=== PATIENT | female | born 1945 | race Caucasian/White ===

== ENCOUNTER 2017-07-21 08:45 | Inpatient (IN) | payer OTHER ==
[~2017-07-21] VITALS: Ht 157.5 cm; Wt 154.7 kg
[~2017-07-21 08:45] MED LIST: ADULT LOW DOSE81 MG PO; ALEVE220 MG PO; ASPIRIN81 M2 PO; AUGMENTIN 875875 M1 PO; COUMADIN 5 MG TA5 M1 PO; FLEX A MIN; FLEXI JOINT TA1 EAC1 PO; LASIX 40 MG TAB40 M2 PO; MUCINEX TA600 MG/TA2 PO; OXYGEN MISCELL; TESSALON PERLE100 MG PO; VENTOLIN HFA 1818 GM INH
[2017-07-21 08:48] VITALS: BP 166/61
[2017-07-21] MEDS ORDERED: MOVE FREE JOIN1 EACH PO (08:53)
[2017-07-21 09:52] LABS: HEMATOCRIT 43.8 % (37.0-47.0); MCH 28.8 pg (26.0-34.0); MPV 7.6 fl. (7.2-11.1); NUCLEATED RBCS 0 /100WBC; PLATELET COUNT* 315 thou/uL (150-400); RBC 4.87 mil/uL (4.20-5.00); RDW-CV 15.9 % (10.5-14.5); WBC 10.8 thou/uL (4.0-11.0)
[2017-07-21 09:59] LABS: CALCIUM 8.9 mg/dL (8.5-10.1); POTASSIUM 4.1 mmol/L (3.5-5.1)
[2017-07-21 10:10] LABS: TOTAL BILIRUBIN 0.7 mg/dL (<0.1-1.0); TOTAL PROTEIN 8.4 g/dL (6.4-8.2)
[2017-07-21] MEDS ORDERED: KEFLEX250 MG PO (10:14)
[2017-07-21 10:18] LABS: ABSOLUTE LYMPHOCYTES 0.3 thou/uL (0.8-5.3); ABSOLUTE MONOCYTES 0.5 thou/uL (0.0-1.2); ABSOLUTE NEUTROPHILS 9.9 thou/uL (1.6-8.1)
[2017-07-21 10:19] LABS: ANISOCYTOSIS 1+; PLATELET ESTIMATE ADEQUATE; POIKILOCYTOSIS 1+
[2017-07-21] MEDS ORDERED: PROAIR HFA8.5 GM INH (10:23)
[2017-07-21 10:56] VITALS: BP 147/69
--- NOTE | 2017-07-21 11:30 | NUR ---
ATTEMPTED TO HELP PT UP TP THE BATHROOM. PT REQUIRED MAX ASSIST TO GET TO THE SIDE OF THE BED. THIS NURSE VERY UNCOMFORTABLE WITH ATTEMPTING TO GET THE PT UP SHE REQUIRED SO MUCH ASSISTANCE TO SIT UP. DR BROWN IS NOW GOING TO ADMIT THE PT SHE IS WEAK AND NOT SAFE TO GO HOME. AFTER SEVERAL ATTEMPTED TO HELP PT TO GET BACK IN BED WITH NO COOPERATION FOR PT. MULTIPLE STAFF IN ROOM AND HELPED THE PT BACK TO BED. PT NOW IN BED WITH SIDE RAIL UP. AND ON THE MONITOR.
[2017-07-21 13:31] VITALS: BP 140/66
[2017-07-21 13:34] LABS: INR 2.4; PROTIME 23.4 Seconds (9.20-11.50)
[2017-07-21 13:37] LABS: INFLUENZA A ANTIGEN None Detected (None Detect); INFLUENZA B ANTIGEN None Detected (None Detect)
[2017-07-21 14:30] VITALS: BP 149/60
--- NOTE | 2017-07-21 14:47 | EKG ---
[place] [address] ELECTROCARDIOGRAM REPORT Name: CHIKI TREVINO I Room: [address] IN [facility].#: [id number] Admission: 07/21/17 Attend Phys: Dago Jensen MD Discharge: Date of : 41 Report #: [id number] THIS REPORT FOR: //name// [facility] ED Test Date: 2017-07-21 Test Time: 09:18:19 Pat Name: CHIKI TREVINO Department: Room: [facility] Gender: F Dice Manager: Evelin DUGGAN : 1945 Requested By: Juan Kaur Order Number: [id number] MD: Celio Duran Measurements Intervals [place] Rate: 95 P: DE: QRS: 42 QRSD: 93 T: 68 QT: 331 QTc: 416 Interpretive Statements Sinus rhythm Low voltage, precordial leads Probable anteroseptal infarct, old Compared to ECG 09/19/2012 13:10:07 Low QRS voltage now present Sinus rhythm no longer present Left-axis deviation no longer present Myocardial infarct finding still present Electronically Signed On 07-21-2017 14:46:49 FOOD SAFETY SPECIALIST by Celio Duran [email or web address] <ELECTRONICALLY SIGNED> By: Celio Duran MD, FACC 07/21/17 1446 7 7 Celio Duran MD, FACC /EPI
[2017-07-21 15:15] VITALS: BP 149/60
--- NOTE | 2017-07-21 16:15 | NUR ---
RECEIVED PT FROM Robert AT 1425. PT IN BED, BED IN LOW AND LOCKED POSITION, FALL PRECAUTIONS IN PLACE FOR HIGH FALL RISK STATUS. CALL BUTTON AND PERSONAL ITEMS IN PT REACH. PT A&O X2, FORGETFUL/CONFUSED. LOW GRADE TEMP ORALLY/99.9, PT IN 2L O2 NC/96%. B/P, HR WNL, RESPIRATIONS 21, LOOSE PRODUCTIVE COUGH. PERRLA. MULTIPLE SKIN ISSUES WITH REDNESS UNDER SKIN FOLDS, BILATERAL LE CELLULITIS, WEEPING, GENERALIZED EDEMA, LUNGS COARSE TO DIMINISHED. ABD SOFT TO PALPATION, MORBIDLY OBESE, PAIN EXPRESSED ON ANY KIND OF TOUCH ON PATIENT. PT HIGH NEED, ANXIOUS PATIENT AT THIS TIME. INCONTINENT OF BLADDER, ESPINOZA TO BE STARTED PER MD ORDERS. PICC LINE PRESENTLY BEING STARTED BY INFUSION NURSE ASH AFTER LOSS OF POOR PERIPHERAL IV ACCESS. FLU A AND B WERE NOT DECTECTED VIA SWAB/LAB. UA NEEDED TO BE OBTAINED AFTER PICC LINE PROCEDURE. PT LIVES IN HOME WITH LONG TIME FRIEND, PT USES LIFT WHEELCHAIR, GRAB BARS, COMMODE LIFT, SHOWER AIDS, PT DOES NOT WALK IN HOME BUT IS KNOWN TO TRANSFER BETWEEN W/C AND [facility]/BED. WILL CONTINUE TO MONITOR PT PROGRESS AND STATUS. ADMISSION COMPLETED.
--- NOTE | 2017-07-21 16:47 | 2DMMODE ---
[place] [address] 2 D/M-MODE ECHOCARDIOGRAM Name: CHIKI TREVINO I Room: [address] IN [facility]#: [id number] Admission: 07/21/17 Attend Phys: Dago Jensen, Discharge: Date of : 41 Date of Service: 07/21/17 1647 Report #: [id number] THIS REPORT FOR: //name// APPROVED REPORT Study performed: 07/21/2017 15:27:50 EXAM: Comprehensive 2D, Doppler, and color-flow Echocardiogram Patient Location: In-Patient Room #: [facility] Status: routine BSA: 2.40 HR: 100 bpm BP: 140/60 mmHg Rhythm: NSR Other Information Study Quality: Good Indications Congestive Heart Failure 2D Dimensions LVEF(%): 69.79 (>50%) IVSd: 10.37 (7-11mm) LVOT Diam: 18.93 (18-24mm) LVDd: 42.37 mm PWd: 11.44 (7-11mm) Ascending Ao: 29.80 (22-36mm) LVDs: 25.84 (25-40mm) Aortic Root: 30.67 mm Collazo's LVEF: 69.79 % Volumes Left Atrial Volume (Systole) LA ESV Index: 17.10 mL/m2 Aortic Valve AoV Peak Artemio.: 2.11 m/s AO Peak Gr.: 17.88 mmHg LVOT Max P.13 mmHg AO Mean Gr.: 10.11 mmHg LVOT Mean P.87 mmHg LVOT Max V: 1.59 m/s AO V2 VTI: 30.40 cm LVOT Mean V: 1.00 m/s YULIYA (VTI): 1.86 cm2 LVOT V1 VTI: 20.06 cm Mitral Valve E/A Ratio: 0.82 [place] [address] 2 D/M-MODE ECHOCARDIOGRAM Name: CHIKI TREVINO I Room: [address] IN [facility]#: [id number] Admission: 07/21/17 Attend Phys: Dago Jensen, Discharge: Date of : 41 Date of Service: 07/21/17 1647 Report #: [id number] MV Decel. Time: 238.27 ms MV E Max Artemio.: 0.96 m/s MV PHT: 69.10 ms MVA (PHT): 3.18 cm2 Pulmonary Valve PV Peak Artemio.: 1.20 m/s PV Peak Gr.: 5.74 mmHg Left Ventricle The left ventricle is normal size. There is normal LV segmental wall motion. There is normal left ventricular wall thickness. Left ventricular systolic function is normal. LVEF is 65-70%. Grade I - abnormal relaxation pattern. Right Ventricle The right ventricle is normal size. The right ventricular systolic function is normal. Atria The left atrium size is normal. The right atrium size is normal. Aortic Valve The aortic valve is normal in structure. No aortic regurgitation is present. There is no aortic valvular stenosis. Mitral Valve The mitral valve is normal in structure. There is no mitral valve regurgitation noted. No evidence of mitral valve stenosis. Tricuspid Valve The tricuspid valve is normal in structure. Unable to assess PA pressure. Trace tricuspid regurgitation. Pulmonic Valve The pulmonary valve is normal in structure. There is no pulmonic valvular regurgitation. Great Vessels The aortic root is normal in size. IVC is normal in size and collapses with >50% inspiration Pericardium Trace pericardial effusion. <Conclusion> [place] [address] 2 D/M-MODE ECHOCARDIOGRAM Name: CAMILLELADONNA ANNHARDEEP Winkler Room: [address] IN [facility]#: [id number] Admission: 07/21/17 Attend Phys: Dago Jensen, Discharge: Date of : 41 Date of Service: 07/21/17 1647 Report #: [id number] The left ventricle is normal size. There is normal left ventricular wall thickness. Left ventricular systolic function is normal. LVEF is 65-70%. Grade I - abnormal relaxation pattern. <ELECTRONICALLY SIGNED> By: Celio Duran MD, FACC 07/21/171646 46 46 Celio Duran MD, FACC /INF
--- NOTE | 2017-07-21 16:48 | NUR ---
NOTIFIED TO PLACE A PICC FOR A PATIENT NEEDING ADDITIONAL ACCESS. ORDER AND CONSENT NOTED. THE PROCEDURE WELL BENIFITS AND RISK FOR DVT AND INFECTION DISCUSSED AND SHE VERBALIZED UNDERSTANDING. THE RUE BASILIC WAS WIDLEY PATENT. A #4F DOUBLE LUMEN POWER PICC WAS PLACED AFTER A BEDSIDE TIMEOUT WAS COMPLETE. PICC TRIMMED TO 45CM AND ADVANCED WITHOUT DIFFICULTY. LINE CONFIRMED WITH 3CG AT 0CM EXTERNAL. LINE SECURED AND RELEASED FOR USE
--- NOTE | 2017-07-21 22:19 | NUR ---
ESPINOZA CATHETER INITIATED AND PATENT. PT OUTPUT 1000 ML IMMEDIATELY AFTER INSERTING ESPINOZA CATH. WATERY LOOSE STOOL X3 SINCE ADMIT, STOOL SAMPLE TAKEN TO LAB FOR PROCESSING. MULTIPLE PICTURES TAKEN R/T CELLULITIS, REDNESS IN SKIN FOLDS, BUTTOCK STILL NEEDS PHOTO FOR PURPLE COLOR AND BLEEDING CRACK INSIDE BUTTOCK SEAM. PT AGREED TO FECAL TUBE IF NEEDED SINCE SHE IS A HARD AND PAINFUL SANTIAGO. REQUIRES TURNS Q2 OR MORE OFTEN. PAIN AT TOUCH GENERALIZED ANYWHERE.
[2017-07-22 00:51] VITALS: BP 129/58
[2017-07-22 01:28] LABS: URINE BILIRUBIN NEGATIVE (Negative); URINE BLOOD 2+ (Negative); URINE CLARITY CLEAR; URINE COLOR YELLOW; URINE GLUCOSE-RANDOM NEGATIVE (Negative); URINE KETONES NEGATIVE (Negative); URINE LEUKOCYTES-REFLEX NEGATIVE (Negative); URINE NITRITE-REFLEX NEGATIVE (Negative); URINE PROTEIN NEGATIVE (Negative); URINE SPECIFIC GRAVITY 1.025 (1.005-1.030); URINE UROBILINOGEN 0.2 E.U./dl (0.2-1.0)
[2017-07-22 02:31] LABS: CASTS None Seen /LPF (None Seen); MUCUS 0-3 Light strn/LPF (None Seen); SQUAMOUS 0-3 Few /LPF (0-3)
[2017-07-22 02:32] LABS: BACTERIA-REFLEX 1-9 Few /HPF (None Seen); CRYSTALS None Seen /LPF (None Seen); URINE RBC 3-10 Few /HPF (0-2); URINE WBC-REFLEX 0-5 Rare /HPF (0-5)
--- NOTE | 2017-07-22 03:47 | NUR ---
ASSUMED CARE @ 1959-07/21-MON.AWAKE IN BED W/ HOB UP 45 DEGREES.02 CONTINOUS @ 2L/NC.LADY FRIEND RUBA STAYING ALL NIGHT.ESPINOZA CATHETER INSERTED BY DAY RN. CELLULITIS LEGS-W/ BLISTERS & WEEPING.REFUSED TO TURN DURING NIGHT.PREFERS TO STAY ON HER BACK.URINE FOR UA/CS SENT TO LAB @ -SAT.TWO PORTS PICC LINE HAS GOOD BLOOD RETURN & FLUSHES EASILY.ON HOURLY ROUNDS.GAME DESIGNER DOING ODD HOUR ROUNDS.
[2017-07-22 05:54] LABS: ABSOLUTE LYMPHOCYTES 0.5 thou/uL (0.8-5.3); ABSOLUTE MONOCYTES 0.1 thou/uL (0.0-1.2); ABSOLUTE NEUTROPHILS 7.9 thou/uL (1.6-8.1); BASOPHILS 0.4 %; HEMATOCRIT 37.7 % (37.0-47.0); HEMOGLOBIN 12.3 gm/dL (12.0-15.0); LYMPHOCYTES 5.6 %; MCH 28.8 pg (26.0-34.0); MCHC 32.7 g/dL (28.0-37.0); MCV 88.3 fL (80.0-100.0); MONOCYTES 0.7 %; MPV 7.8 fl. (7.2-11.1); NUCLEATED RBCS 0 /100WBC; PLATELET COUNT* 275 thou/uL (150-400); POLYS 93.3 %; RBC 4.27 mil/uL (4.20-5.00); RDW-CV 15.5 % (10.5-14.5); WBC 8.5 thou/uL (4.0-11.0)
[2017-07-22 06:08] LABS: CALCIUM 8.3 mg/dL (8.5-10.1); CREATININE 0.9 mg/dL (0.6-1.3); MAGNESIUM 1.7 mg/dL (1.8-2.4); POTASSIUM 3.6 mmol/L (3.5-5.1)
[2017-07-22 06:13] LABS: INR 2.9; PROTIME 28.1 Seconds (9.20-11.50)
--- NOTE | 2017-07-22 07:38 | NUR ---
SLEEPING SINCE 2299.REFUSED HS SNACK.TEMP @ 1715-74.4 ORAL.TEMP RE-CHECKED @ 0410-70.3 ORAL.NO MORE STOOLS AFTER 1999.REFUSED FECAL TUBE.ESPINOZA CATHETER PATENT.
[2017-07-22 08:15] VITALS: BP 128/62
[2017-07-22 16:00] VITALS: BP 112/58
--- NOTE | 2017-07-22 17:58 | NUR ---
PATIENT HAS BEEN ALERT AND ORIENTED TODAY. REFUSING TO BE TURNED AT TIMES AND TO HAVE FEET ELEVATED. LOWER EXTREMITIES ARE VERY SWOLLEN, PATIENT IS GETTING IV LASIX, ESPINOZA IS IN PLACE AND DRAINING WELL. NO COMPLAINTS OF PAIN TODAY. PATIENT HAS BEEN COUGHING, NON PRODUCTIVE COUGH WITH FAIR EFFORT. FRIEND HAS BEEN AT BEDSIDE MOST OF THE DAY. VITAL SIGNS HAVE BEEN STABLE ON 2 LITERS OF OXYGEN THROUGH NASAL CANNULA. WILL CONTINUE TO MONITOR.
[2017-07-22 20:15] VITALS: BP 127/63
[2017-07-22 23:10] VITALS: BP 116/53
[2017-07-23 04:11] VITALS: BP 123/51
--- NOTE | 2017-07-23 05:29 | NUR ---
PT SLEPT ON AND OFF THROUGH NIGHT. ASSESSMENT DOCUMENTED. MEDS GIVEN PER E-MAR. PT REPORTED NO PAIN OR NAUSEA. PICC PATENT. ESPINOZA IN PLACE AND DRAINING DEPENDANTLY. URINE STARTED TO TURN PINK THIS AM. WILL CONTINUE TO MONITOR.
[2017-07-23 05:36] LABS: ABSOLUTE LYMPHOCYTES 0.6 thou/uL (0.8-5.3); ABSOLUTE MONOCYTES 0.5 thou/uL (0.0-1.2); ABSOLUTE NEUTROPHILS 12.1 thou/uL (1.6-8.1); BASOPHILS 0.2 %; HEMATOCRIT 37.1 % (37.0-47.0); LYMPHOCYTES 4.2 %; MCH 28.6 pg (26.0-34.0); MCHC 32.4 g/dL (28.0-37.0); MCV 88.3 fL (80.0-100.0); MONOCYTES 3.6 %; MPV 8.5 fl. (7.2-11.1); NUCLEATED RBCS 0 /100WBC; PLATELET COUNT* 281 thou/uL (150-400); RDW-CV 15.8 % (10.5-14.5); WBC 13.2 thou/uL (4.0-11.0)
[2017-07-23 05:54] LABS: INR 4.4
[2017-07-23 06:03] LABS: ALBUMIN 2.4 g/dL (3.4-5.0); CALCIUM 8.3 mg/dL (8.5-10.1); POTASSIUM 3.1 mmol/L (3.5-5.1); TOTAL BILIRUBIN 0.2 mg/dL (<0.1-1.0)
[2017-07-23 08:00] VITALS: BP 146/63
[2017-07-23 14:18] VITALS: BP 146/63
[2017-07-23 16:28] VITALS: BP 130/61
--- NOTE | 2017-07-23 17:56 | NUR ---
ASSUMED CARE OF PT THIS AM ASSESSED AND DOCUMENTED. PT IS A&O WITH NO C/O PAIN. VSS WNL. PT HAS BEEN AFEBRILE. SHE REMAINS ON ISOLATION DROPLET FOR TESTS PENDING. PT ESPINOZA WAS BLOOD TINGED BEGINNING OF SHIFT. THIS AFTERNOON URINE HAS BEEN CLEAR YELLOW. PT HAS AUDIBLE WHEEZING WITH COARSE LUNGS .PT IS A FALL RISK AND CONT ON FALL PROTOCOL PER FACILITY. PT HAS A PATENT DOUBLE LUMEN PICK IN HER UR ARM. BLLE ARE EDEMATOUS WITH WEEPING AND BLISTERS. HAVE CONT TO ELEVATE LEGS AND HEELS. PT HAS BEEN Q2 HR TURN AND REPOSITIONED. PT HAS HAD NO S OR SX OF ADVERSE REACTION TO ABT'S. EDUCATION HAS BEEN GIVEN ON DEMAND. HOURLY ROUNDING COMPLETE. CALL LIGHT IN REACH. SENT DR LYON YOU CALL FOR K+ ORDER.
[2017-07-23 20:30] VITALS: BP 131/88
[2017-07-24 06:25] LABS: ABSOLUTE LYMPHOCYTES 1.4 thou/uL (0.8-5.3); ABSOLUTE MONOCYTES 1.1 thou/uL (0.0-1.2); ABSOLUTE NEUTROPHILS 9.6 thou/uL (1.6-8.1); BASOPHILS 0.2 %; HEMATOCRIT 38.6 % (37.0-47.0); HEMOGLOBIN 12.7 gm/dL (12.0-15.0); LYMPHOCYTES 11.8 %; MCH 28.4 pg (26.0-34.0); MCHC 32.9 g/dL (28.0-37.0); MCV 86.3 fL (80.0-100.0); MPV 7.7 fl. (7.2-11.1); NUCLEATED RBCS 0 /100WBC; PLATELET COUNT* 288 thou/uL (150-400); RBC 4.47 mil/uL (4.20-5.00); RDW-CV 15.6 % (10.5-14.5); WBC 12.1 thou/uL (4.0-11.0)
[2017-07-24 06:35] LABS: PROTIME 57.4 Seconds (9.20-11.50)
[2017-07-24 06:39] LABS: INR 6.1
[2017-07-24 06:41] LABS: ALBUMIN 2.5 g/dL (3.4-5.0); CALCIUM 8.4 mg/dL (8.5-10.1); POTASSIUM 3.4 mmol/L (3.5-5.1); TOTAL BILIRUBIN 0.3 mg/dL (<0.1-1.0); TOTAL PROTEIN 7.1 g/dL (6.4-8.2)
[2017-07-24 06:43] LABS: PREALBUMIN 22.3 mg/dL (18.0-35.7)
--- NOTE | 2017-07-24 06:52 | NUR ---
PT SLEPT ON AND OFF THORUGH NIGHT. ASSESSMENT DOCUMENTED. MEDS GIVEN PER E-MAR. PT REPORTED NO PAIN OR NAUSEA. PICC PATENT. POTASSIUM REPLACED PER PROTOCOL. ESPINOZA DRAINING DEPENDENTLY. PT REFUSED SOME TURNS THIS SHIFT. NO CONCERNS AT THIS TIME, WILL CONTINUE TO MONITOR.
[2017-07-24 08:30] VITALS: BP 139/53
[2017-07-24 11:33] LABS: INR 5.7
--- NOTE | 2017-07-24 12:52 | NUR ---
Nutrition: Consult received for "morbid obesity." Wt: 341#. Last admit, pt weighed 317#. She has chronic edema. Admitted pneumonitis, wheezing, bronchitis. CHO controlled 1000 kcal diet. BG WNL, alb 2.5, prealb 22.3, K+ 3.4 and being replaced. Pt eating 100% of meals. No nutrition intervention needed at this time. Goal: continue w low kcal diet, good BG control, wt loss over time. Mild risk.
[2017-07-24 16:00] VITALS: BP 132/56
--- NOTE | 2017-07-24 16:09 | NUR ---
SW met with pt to complete initial assessment, introduce self, and SW role. Pt was out of the room at the moment and pt friend/caregiver, Hailee provided info that pt/pt friend anticipate pt being able to dc home with friend but that they would see how the pt is feeling and functioning as well. Pt has history of oxygen with [facility] and hx of HH with [facility]. SW to continue to follow to assist with safe dc planning.
--- NOTE | 2017-07-24 16:50 | NUR ---
I have reviewed the documentation by zayra Mancuso from 07/24/17 to 07/24/17 and I concur with it. JD BERNAL
--- NOTE | 2017-07-24 17:43 | NUR ---
PATIENT HAS BEEN ALERT AND ORIENTED TODAY, FAMILY AT BEDSIDE TODAY. NO COMPLAINTS OF ANY KIND TODAY. VITAL SIGNS STABLE ON 2 LITERS OF OXYGEN THROUGH NASAL CANNULA. PATIENT HAS ESPINOZA IN PLACE. CALL LIGHT IS IN REACH, FAMILY AT BEDSIDE WILL CONTINUE TO MONITOR.
[2017-07-24 21:00] VITALS: BP 135/73
[2017-07-25 04:25] LABS: CALCIUM 8.6 mg/dL (8.5-10.1); CREATININE 0.8 mg/dL (0.6-1.3); POTASSIUM 3.7 mmol/L (3.5-5.1)
[2017-07-25 05:04] LABS: HEMATOCRIT 36.6 % (37.0-47.0); HEMOGLOBIN 12.2 gm/dL (12.0-15.0); MCH 28.4 pg (26.0-34.0); MCHC 33.3 g/dL (28.0-37.0); MCV 85.2 fL (80.0-100.0); MPV 7.7 fl. (7.2-11.1); RBC 4.29 mil/uL (4.20-5.00); RDW-CV 15.6 % (10.5-14.5); WBC 6.9 thou/uL (4.0-11.0)
[2017-07-25 05:44] LABS: INR 3.2
[2017-07-25 09:00] VITALS: BP 142/60
--- NOTE | 2017-07-25 09:10 | NUR ---
PT SLEPT ON AND OFF THIS SHIFT. ASSESSMENT DOCUMENTED. MEDS GIVEN PER E-AUG. PT REPORTED NO PAIN. PICC PATENT. PT REFUSED REPOSITIONS ALL NIGHT. NO CONCERNS AT THIS TIME, WILL CONTINUE TO MONITOR.
[2017-07-25 14:50] VITALS: BP 144/72
[2017-07-26 00:24] VITALS: BP 130/64
[2017-07-26 02:07] LABS: ADENOVIRUS Negative (Negative); INFLUENZA A Negative (Negative); INFLUENZA B Negative (Negative); METAPNEUMOVIRUS Negative (Negative); PARAINFLUENZA 1 Negative (Negative); PARAINFLUENZA 2 Negative (Negative); PARAINFLUENZA 3 Negative (Negative); RHINOVIRUS Negative (Negative); RSV A Negative (Negative); RSV B Positive (Negative)
[2017-07-26 06:33] LABS: PROTIME 16.1 Seconds (9.20-11.50)
[2017-07-26 06:36] LABS: INR 1.7
--- NOTE | 2017-07-26 06:59 | NUR ---
PATIENT SLEPT PART OF THE NIGHT. PATIENT REMAINS ON OXYGEN AT 2L PER NASAL CANNULA. ESPINOZA REMAINS TO DEPENDENT DRAIN BUT PATIENT IS HAVING BLOODY DISCHARGE. PATIENT REMAINS ON DROPLET PRECAUTIONS. WILL CONTINUE TO MONITOR.
[2017-07-26 08:00] VITALS: BP 121/58
--- NOTE | 2017-07-26 10:54 | NUR ---
SW met with pt and pt friend to discuss pt situation and dc planning. SW discussed pt functioning and possibility that a SNF/rehab stay would be warranted and pt said she would not want to go to SNF; she expressed that she felt she was back to her previous level of functioning. Pt has not had any hx of SNF but she says that she has heard things about them and her sister has been in several. Pt said that she would accept services. SW encouraged pt to work with therapy and nursing and show her safety with mobility and ADLs so that an appropriate and safe dc plan could be recommended. SW to continue to follow to assist with safe dc planning.
[2017-07-26 14:55] VITALS: BP 135/62
[2017-07-26 16:00] VITALS: BP 139/70
--- NOTE | 2017-07-26 19:04 | NUR ---
PATIENT A&OX4, CAN BECOME AGITATED EASILY. ON 2L O2 VIA NC, RIGHT UPPER ARM DOUBLE LUMEN PICC, DRAWS AND FLUSHES FINE. UP WITH ASSISTX1-2 WITH GIATBELT AND WALKER, NEEDS MORE ASSISTANCE STANDING FROM BED AND CHAIR. ESPINOZA CATH IN PLACE WITH BE D/C TONIGHT. EDUCATED PATIENT ON IMPORTANCE OF D/C ESPINOZA VS KEEPING IN FOR FUNCTIONAL SUPPORT ANALYST. NO C/O PAIN/N/V. MODERATE TO MAX AMOUT OF BLOOD DISCHARGE NOTED FROM VAGINAL AREA, CONSULT CALLED PHYSICAIN SEEN PATIENT AT BEDSIDE. PATIENT IS TO FOLLOW UP OUTPATIENT. NO OTHER CONCERNS AT THIS TIME. APPROPRIATE AND COOPORATIVE [facility].
[2017-07-27] VITALS: BP 127/41
[2017-07-27 06:06] LABS: INR 1.3; PROTIME 12.7 Seconds (9.20-11.50)
--- NOTE | 2017-07-27 07:55 | NUR ---
PATIENT SLEPT PART OF THE NIGHT. PATIENT REMAINS ON OXYGEN AT 2L PER NASAL CANNULA. SEPINOZA REMAINS TO DEPENDENT DRAIN. PATIENT DID AGREE TO BE TURNED A COUPLE TIMES LAST NIGHT. PATIENT CONTINUES TO HAVE VAGINAL BLEEDING ULTRASOUND SCHEDULED FOR TODAY. WILL CONTINUE TO MONITOR.
[2017-07-27 08:00] VITALS: BP 148/64
[2017-07-27 16:57] VITALS: BP 146/71
--- NOTE | 2017-07-27 18:43 | NUR ---
PATIENT UP IN CHAIR. PATIENT HAS IS UP WITH GAIT BELT AND WALKER AND MODERATE ASSIST. PATIENT HAD SMALL BM THIS AFTERNOON AFTER MAG CITRATE GIVEN. PATIENT WENT FOR PELVIC ULTRASOUND THIS AFTERNOON WITHOUT INCIDENT. PATIENT IS STILL HAVING SOME VAGINAL BLEEDING. PATIENT HAS HAD COMPLAINTS OF NAUSEA X 2 TREATED ADEQUATELY WITH MEDICATION. PATIENT DOES HAVE GOOD APPETITE. PATIENT DENIES ANY NEEDS AT THIS TIME. CALL LIGHT WITHINREACH. WILL CONTINUE TO MONITOR.
--- NOTE | 2017-07-27 19:25 | NUR ---
PATIENT HAS REFUSED ESPINOZA DC THIS SHIFT WILL ATTEMPT AGAIN TONIGHT.
[2017-07-27 21:00] VITALS: BP 128/61
--- NOTE | 2017-07-28 05:38 | NUR ---
PT SLEPT AT INTERVALS DURING THE NIGHT, SEVERAL LARGE BOWEL MOVEMENTS TONIGHT, UP WITH ASSIST TO THE BSC, FRIEND STAYED THE NIGHT, PICC SALINE LOCKED, CALL LIGHT IN REACH, WILL CONTINUE TO MONITOR
[2017-07-28 06:18] LABS: HEMATOCRIT 40.8 % (37.0-47.0); HEMOGLOBIN 13.1 gm/dL (12.0-15.0); MCH 28.6 pg (26.0-34.0); MCHC 32.1 g/dL (28.0-37.0); MCV 88.9 fL (80.0-100.0); MPV 8.4 fl. (7.2-11.1); RBC 4.59 mil/uL (4.20-5.00); RDW-CV 15.4 % (10.5-14.5); WBC 9.6 thou/uL (4.0-11.0)
[2017-07-28 06:27] LABS: INR 1.3; PROTIME 12.7 Seconds (9.20-11.50)
[2017-07-28 06:29] LABS: CALCIUM 9.3 mg/dL (8.5-10.1); CREATININE 1.1 mg/dL (0.6-1.3); POTASSIUM 3.8 mmol/L (3.5-5.1)
[2017-07-28 07:29] VITALS: BP 123/61
[2017-07-28 16:45] VITALS: BP 120/60
--- NOTE | 2017-07-28 17:12 | NUR ---
ATTEMPTED TO WORK WITH PT. PT. DECLINED O.T. DUE TO FATIGUE. SHE ALSO EXPRESSED THAT SHE WASN'T INTERESTED IN USING A.E. FOR LE ADLS.
--- NOTE | 2017-07-28 18:46 | NUR ---
RECEIVED PATIENT AT 1500. PATIENT A&OX4, ON 2L O2 VIA NC. RIGHT UPPER ARM PICC, DOUBLE LUMEN, FLUSHES AND DRAWS WELL. UP WITH ASSISTX1-2 WITH GIATBELT AND WALKER, STEADY SLOW SHUFFLE GAIT. NO C/O PAIN/N/V. NO OTHER CONCERNS AT THIS TIME. APPROPRIATE AND COOPORATIVE WITH CARE.
[2017-07-28 19:52] VITALS: BP 123/53
[2017-07-29 06:05] LABS: HEMATOCRIT 38.1 % (37.0-47.0); HEMOGLOBIN 12.3 gm/dL (12.0-15.0); MCH 28.8 pg (26.0-34.0); MCHC 32.4 g/dL (28.0-37.0); MPV 8.3 fl. (7.2-11.1); RBC 4.28 mil/uL (4.20-5.00); RDW-CV 15.6 % (10.5-14.5); WBC 9.5 thou/uL (4.0-11.0)
[2017-07-29 06:13] LABS: CALCIUM 8.7 mg/dL (8.5-10.1); MAGNESIUM 2.4 mg/dL (1.8-2.4); POTASSIUM 3.7 mmol/L (3.5-5.1)
--- NOTE | 2017-07-29 06:53 | NUR ---
ASSESSMENT COMPLETE. PT SLEPT GOOD THROUGH THE NIGHT WITHOUT ANY CONCERNS. PT IS ON 2L PER NC WITH ADEQUATE SATS. PT HAS PICC IN RIGHT UPPER ARM, NO FLUIDS INFUSING. PT IS Q2 TURN. PT IS UP 2 ASSIST WITH WALKER AND GAIT BELT. PT USED BEDPAN DURING THE NIGHT. SEE ASSESSMENT AND VITALS FOR OTHER DETAILS. CALL LIGHT WITHIN REACH, WILL CONTINUE TO MONITOR
[2017-07-29 07:55] VITALS: BP 124/64
--- NOTE | 2017-07-29 10:39 | NUR ---
CONTINUE TO FOLLOW, DISCUSSED WITH THERAPY AND NURSING. ASKED THAT THEY ENCOURAGE PT TO DO MORE FOR HERSELF AND WITH FRIEND'S ASSIST PT STILL STATING WANING TO GO HOME NOT SNF. PER KEVINRN PT STATES SHE PLANS TO GO HOME AT [place], REFUSED TO DISCUSS SNF
--- NOTE | 2017-07-29 15:16 | NUR ---
CONTINUE TO FOLLOW, DISCUSSED WITH DR ROSE. PLAN IS FOR DC TOMORROW HOME WITH HH. MET WITH PT AND RUBA. PT PLANS TO RETURN HOME, DECLINES SNF. WANTS TO USE [facility] FOR HH AGAIN. PT STATES THEY WILL BE ABLE TO GET HOME AND IN THE HOUSE WITHOUT PROBLEMS. THEY HAVE A RAMP, WALKER, LIFT CHAIR AND DO NOT ANTICIPATE ANY PROBLEMS. PT REQUESTING MORNING VISITS WITH HH RUBA WORKS IN THE AFTERNOON. CALLED AND LEFT MESSAGE FOR [facility] RE: INTIAL REFERRAL AND POSSIBLE DC TOMORROW. [facility] WILL NEED CALLED AND [facility] [phone] FAX [phone]
[2017-07-29 15:19] VITALS: BP 146/63
--- NOTE | 2017-07-29 17:00 | NUR ---
PATINET A&OX4, 2L O2 VIA NC, RIGHT UPPER ARM PIC DOUBLE LUMEN. FLUSHES AND DRAWS WELL. NO C/O PAIN/N/V. UP WITH ASSISTX1 WITH WALKER AND GAITBELT, TAKES EXTRA TIME. EDEMA BLE OPEN TO AIR. NO OTHER CONCERNS AT THIS TIME. APPROPRAITE AND COOPORATIVE WITH CARE.
[2017-07-29 19:15] VITALS: BP 96/44
[2017-07-30] VITALS: BP 150/55
--- NOTE | 2017-07-30 05:42 | NUR ---
PATIENT UP IN CHAIR AT BEGINNING OF SHIFT. PT MOVED TO BSC WITH ASSIST OF SUMEET WEAVER AND TWO STAFF MEMBERS. PT ON BSC FOR OVER AN HOUR. PT SAID SHE WAS SITTING THERE UNTIL HER FRIEND RETURNED. EDUCATION GIVEN TO PATIENT ABOUT PRESSURE WOUNDS THAT COULD DEVELOP FROM SITTING ON A COMMODE TOO LONG. PT BECAME ANGRY AND SAID SHE WILL CALL US WHEN SHE IS READY TO GET UP. FRIEND EVENTUALLY ARRIVED AND PT RETURNED TO BED WITH ASSIST OF TWO. PT LATER USED THE BEDPAN. PT VOIDED YELLOW URINE EACH TIME. BARRIER CREAM APPLIED. PT WITH BARRIER CREAM APPLIED TO FOLDS ALONG WITH INTRADRY. PT WITH PURPLE EDEMA ON LOWER EXTREMITIES. BLISTERS ARE CLOSED; NO OOZING NOTED. PT WITH DOUBLE LUMAN PICC LINE IN RT UPPER ARM, SALINE LOCKED. PT REFUSING TURNS DURING THIS SHIFT. FREQUENTLY USED ITEMS AND CALL LIGHT WITHIN REACH. SIDERAILS UPX4 AND BED ALARM ON. WILL CONTINUE TO MONITOR.
[2017-07-30 07:50] VITALS: BP 146/61
[2017-07-30 15:32] LABS: HEMATOCRIT 42.6 % (37.0-47.0); HEMOGLOBIN 13.6 gm/dL (12.0-15.0); MCH 28.7 pg (26.0-34.0); MCV 89.7 fL (80.0-100.0); MPV 8.1 fl. (7.2-11.1); NUCLEATED RBCS 0 /100WBC; PLATELET COUNT* 296 thou/uL (150-400); RBC 4.75 mil/uL (4.20-5.00); RDW-CV 15.8 % (10.5-14.5); WBC 8.3 thou/uL (4.0-11.0)
[2017-07-30 15:36] LABS: INR 1.4; PROTIME 13.9 Seconds (9.20-11.50)
[2017-07-30 15:39] LABS: CALCIUM 9.2 mg/dL (8.5-10.1); CREATININE 1.4 mg/dL (0.6-1.3); MAGNESIUM 2.2 mg/dL (1.8-2.4); POTASSIUM 3.8 mmol/L (3.5-5.1)
[2017-07-30 16:21] LABS: ABSOLUTE BASOPHILS 0.1 thou/uL (0.0-0.2); ABSOLUTE EOSINOPHILS 0.1 thou/uL (0.0-0.7); ABSOLUTE LYMPHOCYTES 1.5 thou/uL (0.8-5.3); ABSOLUTE MONOCYTES 1.2 thou/uL (0.0-1.2); ABSOLUTE NEUTROPHILS 5.5 thou/uL (1.6-8.1); METAMYELOCYTES 2 %
[2017-07-30 16:22] LABS: PLATELET ESTIMATE ADEQUATE
[2017-07-30 16:23] LABS: TOXIC GRANULATION Occasional
[2017-07-30 17:00] VITALS: BP 143/56
[2017-07-30] MEDS ORDERED: PROAIR HFA8.5 GM PO (17:26)
[2017-07-30] MEDS ORDERED: DUONEB 2.5-0.5 M3 ML INH (17:27)
[2017-07-30] MEDS ORDERED: LEVAQUIN 500 M500 M2 PO (17:29)
[2017-07-30] MEDS ORDERED: NEBULIZER MISCELL (17:30)
[2017-07-30] MEDS ORDERED: TESSALON PERLE100 MG PO (17:31)
[2017-07-30 17:32] VITALS: BP 146/63
--- NOTE | 2017-07-30 19:53 | NUR ---
PATIENT A&OX4, ON 2L O2 VIA NC, RIGHT UPPER ARM PICC. PATIENT IS UP WITH ASSISTX1 WITH WALKER AND GAITBELT TO BEDSIDE CAMODE. NO C/O PAIN/N/V. TAKES EXTRA TIME WITH TRANSFERS AND AMBULATIONS. PATIENT HAS SEVERAL WOUNDS, PICTURES WERE TAKEN. PATIENT DISCHARGED THIS EVENING. PICC LINE DISCONTINUED AT BEDSIDE, CATHETER FULLY INTACT, NO ISSUES. PER PHYSICIAN PATIENT LEFT AGIANST PHYSICIANS ADVICE DUE TO HYPOXIA AND REFUSSING BLOOD GAS BEFORE DISCHARGE. WAS ABLE TO GET AN END TITLE CO2 READING AT 41 WNL. REVIEWED DISCHARGE PAPERWORK WITH PATIENT AND SIGNIFICANT OTHER. ALL QUESTIONS ANSWERED, VERBALIZED UNDERSTANDING, WITH NO FURTHER QUESTIONS. PATIENT LEFT UNIT AT 1815 VIA W/C WITH NURSING STAFF AND SIGNIFICANT OTHER. ALL BELONGIGNS TAKEN WITH PATIENT, NOTHING LEFT BEHIND. APPROPRIATE AND COOPORATIVE WITH CARE.
--- NOTE | 2017-10-12 11:38 | CG ---
[address] [address] CYTO-ORACLE [employer] DEVELOPER REPORT PROCEDURE Name: CHIKI TREVINO Peterson Room: [address] IN [facility]#: [id number] Admission: 07/21/17 Date of : 41 Discharge: 07/30/17 Report #: [id number] Path Case #: [id number] GYNECOLOGIC CYTOLOGY REPORT * * * * * * * * * * * * * * * INTERPRETATION: OTHER: ENDOMETRIAL CELLS ARE PRESENT IN A WOMAN 45 YEARS OF AGE OR OLDER. NEGATIVE FOR SQUAMOUS INTRAEPITHELIAL LESION. SPECIMEN ADEQUACY: Satisfactory for evaluation. Endocervical and/or squamous metaplastic cells (endocervical component) are present. Areas of partially obscuring blood are present. Excessive Cytolysis. COMMENT(S): The Image Guided System was unable to read this specimen. Therefore a manual review was performed. Specimen reprocessed for interpretation using glacial acetic acid (GAA). RESULTS OF SPECIAL TESTING Test: HPV APTIMA Order Date: 07/27/2017 HPV, MARIBEL Screen[[id number]]: Negative (Reference Range = Negative) This test detects fourteen high-risk HPV types (16/18/31/33/35/39/45/51/52/56/58/59/66/68) without differentiation. RESULTED BY: Kath Alcocer DATE/TIME: 07/28/2017 14:09 * * * * * * * * * * * * * * * COTTON PRESSER: Carlos J Cimarron, CT(ASCP) PATHOLOGIST: Gianni Gleason M.D. PAP REPORT ELECTRONICALLY SIGNED BY: Gianni Gleason M.D. DATE/TIME: 08/01/2017 10:50 SPECIMEN: IGP, Aptima HPV,rfx 16/18,45 if pap neg and HPV screen pos ([id number]) # SLIDES: 2 CLINICAL HISTORY: -LMP/MENSTRUAL: LMP: Age 54 BUSINESS CONTROLLER-Bleeding -PREVIOUS PAP: Information not provided -BIOPSY: Information not provided -CONTRACEPTIVE: [place] [address] [employer]LE [employer] DEVELOPER REPORT PROCEDURE Name: CHIKI TREVINO I Room: [address]#: [id number] Admission: 07/21/17 Date of : 41 Discharge: 07/30/17 Report #: [id number] Path Case #: [id number] Information not provided -OTHER: Information not provided -ICD-CM: Information not provided INITIAL CPT CODE(S): 26999 217448; 74579 A; 99204 Professional services performed by [facility], [address] [place] [address]. Technical services performed by [facility], [address], [address], [place] [address]. The Pap smear is a screening test designed to aid in the detection of premalignant and malignant conditions of the uterine cervix. It is not a diagnostic procedure and should not be used as the sole means of detecting cervical cancer. Both false-positive and false-negative reports do occur. PATIENT: CHIKI TREVINO I /AGE: 7 1945 (Age: 72) PATIENT #: [id number] ALT CASE #: SPECIMEN COLLECTION DATE: 07/26/2017 SPECIMEN RECEIVED DATE: 07/27/2017 [facility] [address], [address] - [place] [address] - PHONE: [phone] * * * END OF REPORT * * *
[2017-10-19] MEDS ORDERED: COUMADIN 3 MG TA3 M1 PO (12:54)
[2017-10-19] MEDS ORDERED: COUMADIN 4 MG TA4 M1 PO (12:55)
[2017-10-31] MEDS ORDERED: NORCO 5-325 TA1 EACH PO (09:30)
== END 2017-07-30 17:40 | disposition home health service (06) | DRG 177 ==
LOC: M.ERS 08:45 → M.TBA-ER 12:24 → M.3W 12:24
PROVIDERS: Emergency Medicine; Family Medicine; Internal Medicine; ADMIT Internal Medicine
PROC: 02H633Z Insertion of Infusion Device into Right Atrium, Percutaneous Approach (ICD-10-PCS; principal; 2017-07-21)
DX: J15.6 Pneumonia due to other Gram-negative bacteria (principal); J96.00 Acute respiratory failure, unspecified whether with hypoxia or hypercapnia; I50.33 Acute on chronic diastolic (congestive) heart failure; R65.10 Systemic inflammatory response syndrome (SIRS) of non-infectious origin without acute organ dysfunction; Z68.44 Body mass index [BMI] 60.0-69.9, adult; D68.9 Coagulation defect, unspecified; E66.2 Morbid (severe) obesity with alveolar hypoventilation; M19.90 Unspecified osteoarthritis, unspecified site; K59.00 Constipation, unspecified; N93.9 Abnormal uterine and vaginal bleeding, unspecified; J32.9 Chronic sinusitis, unspecified; R26.81 Unsteadiness on feet; I89.0 Lymphedema, not elsewhere classified; Z79.899 Other long term (current) drug therapy; Z86.711 Personal history of pulmonary embolism

== ENCOUNTER → 2017-10-31 | Day surgery (SDC) | payer OTHER ==
[2017-10-30 10:28] LABS: ABSOLUTE BASOPHILS 0.1 thou/uL (0.0-0.2); ABSOLUTE EOSINOPHILS 0.1 thou/uL (0.0-0.7); ABSOLUTE LYMPHOCYTES 0.9 thou/uL (0.8-5.3); ABSOLUTE MONOCYTES 0.7 thou/uL (0.0-1.2); ABSOLUTE NEUTROPHILS 4.7 thou/uL (1.6-8.1); BASOPHILS 0.9 %; HEMATOCRIT 39.1 % (37.0-47.0); HEMOGLOBIN 12.4 gm/dL (12.0-15.0); LYMPHOCYTES 13.9 %; MCHC 31.7 g/dL (28.0-37.0); MCV 88.5 fL (80.0-100.0); MONOCYTES 10.4 %; MPV 7.7 fl. (7.2-11.1); NUCLEATED RBCS 0 /100WBC; PLATELET COUNT* 308 thou/uL (150-400); POLYS 72.8 %; RBC 4.42 mil/uL (4.20-5.00); RDW-CV 15.7 % (10.5-14.5); WBC 6.5 thou/uL (4.0-11.0)
[2017-10-30 10:37] LABS: INR 1.3
[2017-10-30 10:40] LABS: CALCIUM 9.1 mg/dL (8.5-10.1); CREATININE 0.9 mg/dL (0.6-1.3); POTASSIUM 4.1 mmol/L (3.5-5.1); TOTAL BILIRUBIN 0.5 mg/dL (<0.1-1.0); TOTAL PROTEIN 7.7 g/dL (6.4-8.2)
[~2017-10-31] MED LIST changes: +COUMADIN 3 MG TA3 M1 PO; +COUMADIN 4 MG TA4 M1 PO; +DUONEB 2.5-0.5 M3 ML INH; +KEFLEX250 MG PO; +LEVAQUIN 500 M500 M2 PO; +MOVE FREE JOIN1 EACH PO; +NEBULIZER MISCELL; +NORCO 5-325 TA1 EACH PO; +PROAIR HFA8.5 GM INH; +PROAIR HFA8.5 GM PO
--- NOTE | ~2017-10-31 | OP ---
[address] [address] OPERATIVE REPORT Name: CHIKI TREVINO I Room: [facility]#: [id number] Admission: 10/31/17 Attend Phys: Daryl Parisi MD Discharge: Date of : 41 Report #: [id number] THIS REPORT FOR: //name// For details of the Operative report, please see the post operative note in PCI. By: 0652Medical Records Staff PORFIRIO /DERICK
--- NOTE | 2017-10-31 08:59 | H ---
[address] [address] HISTORY AND PHYSICAL Name: CAMILLEMARISSACHIKI I Room: [facility]#: [id number] Admission: 10/31/17 Attend Phys: Daryl Parisi MD Discharge: Date of : 41 Report #: [id number] THIS REPORT FOR: //name// CC: Kei Parisi HISTORY OF PRESENT ILLNESS: The patient is a 72-year-old white female who is being admitted to [facility] as an outpatient to undergo D and C. While she was hospitalized at [place] in July, she was noted to have postmenopausal bleeding and endometrial thickening. She has now recovered from the pneumonia that she was admitted with, has pulmonary clearance and is admitted for evaluation of the thickened endometrium noted on ultrasound during that hospitalization. She has continued to have intermittent bleeding from time to time. PAST MEDICAL HISTORY: Positive for arthritis, morbid obesity, history of pneumonia, history of hypersomnia and history of a previous deep vein thrombosis. The patient has been on long-term anticoagulant use. PAST SURGICAL HISTORY: Include a previous D and C [place] [address] Laith Ruiz for benign polyps. CURRENT MEDICATIONS: Include albuterol inhaler and a home nebulizer. The patient is also on glucosamine chondroitin, 40 mg of Lasix and 81 mg of aspirin daily. The patient was on Coumadin, but stopped 5 days prior to surgery. PHYSICAL EXAMINATION: VITAL SIGNS: Blood pressure is 142/72. Last recorded weight was 304 pounds (BMI 55.6), 138 kilograms. GENERAL: The patient is an obese, white female, sitting in a wheelchair with oxygen flowing. She is alert and oriented x 3. LUNGS: Chest is clear to auscultation without rales or rhonchi, although breath sounds are distant. HEART: Has a normal sinus rhythm. ABDOMEN: Morbidly obese. No palpable organomegaly is noted. EXTREMITIES: Shows marked edema bilaterally. They are nontender to compression. PELVIC: Limited by the patient's body habitus. External genitalia appear normal. The vagina is without visible lesion. The cervix is difficult to visualize, but no abnormalities were seen. Uterine size cannot be assessed. No adnexal masses or tenderness are noted. NEUROLOGIC: Grossly normal for a wheelchair bound patient. IMPRESSION: Postmenopausal bleeding with endometrial thickening of 1.2 cm. PLAN: To proceed with hysteroscopy/D and C. Risk of this operation including bleeding, infection, damage to the uterus and [place] [address] HISTORY AND PHYSICAL Name: CHIKI TREVINO I Room: [facility]#: [id number] Admission: 10/31/17 Attend Phys: Daryl Parisi MD Discharge: Date of : 41 Report #: [id number] Risk of recurrent DVT was discussed. Pulmonary risks were discussed. Questions were encouraged and answered. The patient wishes to proceed with surgery as planned. <ELECTRONICALLY SIGNED> By: Daryl Parisi MD 10/31/17 0859 [id number] Thania Parisi MD /nt
== END | disposition home or self-care (01) ==
LOC: M.SUR 10-30 09:36
PROVIDERS: Specialist
DX: N84.0 Polyp of corpus uteri (principal); N95.0 Postmenopausal bleeding; M19.90 Unspecified osteoarthritis, unspecified site; E66.01 Morbid (severe) obesity due to excess calories; Z87.01 Personal history of pneumonia (recurrent); Z86.718 Personal history of other venous thrombosis and embolism; Z79.01 Long term (current) use of anticoagulants; Z98.890 Other specified postprocedural states; Z79.899 Other long term (current) drug therapy; Z79.82 Long term (current) use of aspirin; Z79.891 Long term (current) use of opiate analgesic

== ENCOUNTER → 2018-04-02 | Outpatient (CLI) | payer OTHER | LOC: M.WC 08:00 | DX: L89.312 Pressure ulcer of right buttock, stage 2 (principal); L98.412 Non-pressure chronic ulcer of buttock with fat layer exposed; E66.01 Morbid (severe) obesity due to excess calories; M19.90 Unspecified osteoarthritis, unspecified site; Z86.711 Personal history of pulmonary embolism; Z68.43 Body mass index [BMI] 50.0-59.9, adult ==

== ENCOUNTER → 2018-04-23 | Outpatient (CLI) | payer OTHER | LOC: M.WC 04-16 01:58 | DX: L89.312 Pressure ulcer of right buttock, stage 2 (principal); E66.01 Morbid (severe) obesity due to excess calories; M19.90 Unspecified osteoarthritis, unspecified site; Z86.711 Personal history of pulmonary embolism ==

== ENCOUNTER 2018-05-26 02:51 | Inpatient (IN) | payer OTHER ==
[2018-05-25 05:45] VITALS: BP 165/54
[~2018-05-26] VITALS: Ht 157.5 cm; Wt 147.5 kg
--- NOTE | ~2018-05-26 | CON ---
[address] [address] CONSULTATION Name: CHIKI TREVINO I Room: [address] IN ..#: [id number] Admission: 05/26/18 Attend Phys: Nick Marie, Discharge: Date of : 43 Report #: [id number] THIS REPORT FOR: //name// CC: Kei Marie HISTORY OF PRESENT ILLNESS: This is a pleasant 73-year-old female with past medical history significant for PE, bilateral pedal edema, morbid obesity and postmenopausal bleeding who presented to the hospital with abdominal pain. The patient reported right-sided abdominal pain 3 days back in the right lower quadrant and felt that she may have had appendicitis, which prompted her visit. After presentation, the patient was diagnosed with fungal dermatitis of her abdominal pannus and possible bilateral lower extremity cellulitis. The GI Service has been consulted for evaluation of iron deficiency anemia. The patient denies any hematemesis, hematochezia, coffee-ground emesis or melena. She reports she had a colonoscopy 5 years back, which was apparently normal. The patient also reports that she has had significant postmenopausal bleeding. This was worse a few months back and since then she has had a Mirena implanted and since then her bleeding has somewhat subsided. The patient reports that she was diagnosed with iron deficiency anemia at the same time and was placed on iron replacement therapy for that. PAST MEDICAL HISTORY: As mentioned above. The patient has a history of PE, morbid obesity, postmenopausal bleeding, and iron deficiency anemia. PAST SURGICAL HISTORY: Nonsignificant. FAMILY HISTORY: Significant for colorectal cancer in her mother who at the age of 44-45 from colon cancer. SOCIAL HISTORY: The patient denies smoking, alcohol or recreational drug use. REVIEW OF SYSTEMS: Comprehensive 10-point review of systems is negative except for what is mentioned here. PHYSICAL EXAMINATION: VITAL SIGNS: Temperature 36.7, pulse rate 68, respirations 18, blood pressure 117/36, pulse ox 100% on room air. GENERAL: The patient is alert, awake, oriented x 3. HEENT: Pupils are equal, round, reactive to light and accommodation. Mucous membranes are moist. There is no congestion. LUNGS: Clear to auscultation bilaterally. CARDIOVASCULAR: Rate and rhythm regular, S1, S2 present. ABDOMEN: Soft. There is no distention, guarding or rigidity. EXTREMITIES: There is bilateral pitting edema along with chronic venous stasis changes [place] [address] CONSULTATION Name: CHIKI TREVINO I Room: [address]#: [id number] Admission: 05/26/18 Attend Phys: Nick Marie, Discharge: Date of : 41 Report #: [id number] LABORATORY DATA: Hemoglobin is 9.5, hematocrit 30.8, MCV 79.8, WBC count 8, platelet count 385. Sodium is 141, potassium 3.1, chloride 103, bicarbonate 33, BUN 8, creatinine 0.9, glucose 90. Iron saturation 6, TIBC 329. AST 14, ALT 10, alkaline phosphatase 68. ASSESSMENT AND PLAN: This is a pleasant 73-year-old female with past medical history significant for postmenopausal bleeding, iron deficiency anemia, pulmonary embolus, on chronic anticoagulation, who presented to the hospital with abdominal pain. The patient was diagnosed with fungal cellulitis of her abdominal pannus. The GI Service has been consulted for evaluation of her iron deficiency anemia. The patient's iron deficiency anemia appears to be chronic and related to her dysfunctional uterine bleeding. She has been on chronic iron replacement therapy, which I would encourage to continue at this time. She does have a family history of colon cancer and her last colonoscopy was 5 years back. I offered the patient a colonoscopy at this time, but she refused. The patient would like to go back to her regular GI doctor at [place] for her high-risk colon cancer screening. No endoscopic evaluation is warranted at this time. Please call GI with any questions. By: [id number] Hitchcock MD /caron
[2018-05-26 02:52] VITALS: BP 164/57
[2018-05-26 03:35] LABS: HEMATOCRIT 34.4 % (37.0-47.0); HEMOGLOBIN 10.6 gm/dL (12.0-15.0); MCH 24.8 pg (26.0-34.0); MCHC 30.8 g/dL (28.0-37.0); MCV 80.4 fL (80.0-100.0); MPV 7.5 fl. (7.2-11.1); NUCLEATED RBCS 0 /100WBC; PLATELET COUNT* 432 thou/uL (150-400); RBC 4.28 mil/uL (4.20-5.00); RDW-CV 19.4 % (10.5-14.5); WBC 11.6 thou/uL (4.0-11.0)
[2018-05-26 03:42] LABS: CALCIUM 9.2 mg/dL (8.5-10.1); POTASSIUM 3.4 mmol/L (3.5-5.1)
[2018-05-26 03:43] LABS: URINE BILIRUBIN NEGATIVE (Negative); URINE BLOOD 1+ (Negative); URINE CLARITY CLEAR; URINE COLOR YELLOW; URINE GLUCOSE-RANDOM NEGATIVE (Negative); URINE KETONES NEGATIVE (Negative); URINE LEUKOCYTES-REFLEX 1+ (Negative); URINE PROTEIN NEGATIVE (Negative); URINE SPECIFIC GRAVITY 1.015 (1.005-1.030); URINE UROBILINOGEN 0.2 E.U./dl (0.2-1.0)
[2018-05-26 03:45] LABS: URINE NITRITE-REFLEX POSITIVE (Negative)
[2018-05-26 03:50] LABS: CASTS None Seen /LPF (None Seen); SQUAMOUS NONE SEEN /LPF (0-3)
[2018-05-26 03:51] LABS: BACTERIA-REFLEX >30 Many /HPF (None Seen); CRYSTALS None Seen /LPF (None Seen); URINE RBC 0-2 Rare /HPF (0-2); URINE WBC-REFLEX 6-15 Few /HPF (0-5); WBC CLUMPS Few (None Seen)
[2018-05-26 03:52] LABS: INR 2.3; PROTIME 23.4 Seconds (9.20-11.50)
[2018-05-26 03:53] LABS: ABSOLUTE LYMPHOCYTES 0.7 thou/uL (0.8-5.3); ABSOLUTE MONOCYTES 0.7 thou/uL (0.0-1.2); ABSOLUTE NEUTROPHILS 10.2 thou/uL (1.6-8.1); ALBUMIN 2.9 g/dL (3.4-5.0); ANISOCYTOSIS 1+; HYPOCHROMASIA 1+; MICROCYTES 1+; OVALOCYTES Occasional; PLATELET ESTIMATE INCREASED; TOTAL BILIRUBIN 0.6 mg/dL (<0.1-1.0); TOTAL PROTEIN 8.4 g/dL (6.4-8.2)
[2018-05-26 03:54] LABS: POLYCHROMASIA Occasional
[2018-05-26 05:20] VITALS: BP 165/54
[2018-05-26] MEDS ORDERED: COUMADIN 3 MG TA3 M1 PO (08:15)
[2018-05-26 10:00] VITALS: BP 106/44
[2018-05-26 16:00] VITALS: BP 127/46
[2018-05-26 20:50] VITALS: BP 125/53
[2018-05-26 23:09] LABS: GLYCOHEMOGLOBIN (HGB A1C) 6.1 % (4.8-5.6)
[2018-05-27 08:10] VITALS: BP 117/36
[2018-05-27 09:32] LABS: HEMATOCRIT 30.8 % (37.0-47.0); HEMOGLOBIN 9.5 gm/dL (12.0-15.0); MCH 24.5 pg (26.0-34.0); MCHC 30.8 g/dL (28.0-37.0); MCV 79.8 fL (80.0-100.0); MPV 7.4 fl. (7.2-11.1); RBC 3.87 mil/uL (4.20-5.00); RDW-CV 18.9 % (10.5-14.5)
[2018-05-27 09:38] LABS: INR 2.7; PROTIME 27.4 Seconds (9.20-11.50)
[2018-05-27 09:41] LABS: ALBUMIN 2.3 g/dL (3.4-5.0); CALCIUM 8.6 mg/dL (8.5-10.1); CREATININE 0.9 mg/dL (0.6-1.3); POTASSIUM 3.1 mmol/L (3.5-5.1); TOTAL BILIRUBIN 0.5 mg/dL (<0.1-1.0)
[2018-05-27 16:15] VITALS: BP 123/38
[2018-05-28 00:02] VITALS: BP 118/38
[2018-05-28 03:40] LABS: INR 2.9; PROTIME 29.1 Seconds (9.20-11.50)
[2018-05-28 09:30] VITALS: BP 132/72
[2018-05-28 16:00] VITALS: BP 123/45
--- NOTE | 2018-05-28 17:25 | 2DMMODE ---
[place] [address] 2 D/M-MODE ECHOCARDIOGRAM Name: CHIKI TREVINO I Room: [address] IN [facility]#: [id number] Admission: 05/26/18 Attend Phys: Nick Andrews Discharge: Date of : 41 Date of Service: 05/28/18 1725 Report #: [id number] THIS REPORT FOR: //name// APPROVED REPORT Study performed: 05/28/2018 16:04:25 EXAM: Comprehensive 2D, Doppler, and color-flow Echocardiogram Patient Location: In-Patient Room #: [facility] Status: routine BSA: 2.35 HR: 72 bpm BP: 118/38 mmHg Other Information Study Quality: Good Indications Cardiomegaly 2D Dimensions IVSd: 11.42 (7-11mm) LVOT Diam: 19.29 (18-24mm) LVDd: 51.24 mm PWd: 9.38 (7-11mm) Ascending Ao: 28.95 (22-36mm) LVDs: 36.60 (25-40mm) Aortic Root: 27.17 mm Volumes Left Atrial Volume (Systole) LA ESV Index: 23.80 mL/m2 Aortic Valve AoV Peak Artemio.: 1.96 m/s AO Peak Gr.: 15.39 mmHg LVOT Max P.90 mmHg AO Mean Gr.: 8.41 mmHg LVOT Mean P.82 mmHg LVOT Max V: 1.41 m/s AO V2 VTI: 37.62 cm LVOT Mean V: 0.90 m/s YULIYA (VTI): 2.05 cm2 LVOT V1 VTI: 26.43 cm Mitral Valve E/A Ratio: 1.00 MV Decel. Time: 192.69 ms MV E Max Artemio.: 1.12 m/s MV PHT: 55.88 [place] [address] 2 D/M-MODE ECHOCARDIOGRAM Name: CHIKI TREVINO I Room: [address] IN [facility]#: [id number] Admission: 05/26/18 Attend Phys: Nick Andrews Discharge: Date of : 41 Date of Service: 05/28/18 1725 Report #: [id number] MVA (PHT): 3.94 cm2 TDI E/Lateral E': 11.20 E/Medial E': 12.44 Medial E' Artemio.: 0.09 m/s Lateral E' Artemio.: 0.10 m/s Pulmonary Valve PV Peak Artemio.: 1.33 m/s PV Peak Gr.: 7.10 mmHg Left Ventricle The left ventricle is normal size. There is normal LV segmental wall motion. There is normal left ventricular wall thickness. Left ventricular systolic function is normal. LVEF is 55-60%. Transmitral Doppler flow pattern suggests impaired LV relaxation. Right Ventricle The right ventricle is normal size. The right ventricular systolic function is normal. Atria Left atrium is mildly dilated. The right atrium size is normal. Aortic Valve The aortic valve is normal in structure. No aortic regurgitation is present. There is no aortic valvular stenosis. Mitral Valve The mitral valve is normal in structure. There is no mitral valve regurgitation noted. No evidence of mitral valve stenosis. Tricuspid Valve The tricuspid valve is normal in structure. Unable to assess PA pressure. Trace tricuspid regurgitation. Pulmonic Valve The pulmonary valve is normal in structure. There is no pulmonic valvular regurgitation. Great Vessels The aortic root is normal in size. IVC is normal in size and collapses >50% with inspiration. Pericardium There is no peric[place] [address] 2 D/M-MODE ECHOCARDIOGRAM Name: CAMILLEMARISSACHIKI I Room: [address] IN [facility]#: [id number] Admission: 05/26/18 Attend Phys: Nick Andrews Discharge: Date of : 41 Date of Service: 05/28/18 1525 Report #: [id number] <Conclusion> The left ventricle is normal size. There is normal left ventricular wall thickness. Left ventricular systolic function is normal. LVEF is 55-60%. Transmitral Doppler flow pattern suggests impaired LV relaxation. Left atrium is mildly dilated. IVC is normal in size and collapses >50% with inspiration. <ELECTRONICALLY SIGNED> By: Celio Duran MD, FACC 05/28/181724 24 24 Celio Duran MD, FACC /INF
[2018-05-29 00:03] VITALS: BP 123/49
[2018-05-29 04:28] LABS: INR 2.4; PROTIME 24.9 Seconds (9.20-11.50)
[2018-05-29 15:36] VITALS: BP 123/49
[2018-05-29 16:47] VITALS: BP 123/49
[2018-05-29 16:55] VITALS: BP 123/49
[2018-05-29 17:05] VITALS: BP 123/49
[2018-05-29] MEDS ORDERED: ASA81BEC PO (17:17)
[2018-05-29 17:21] VITALS: BP 123/49
[2018-05-29] MEDS ORDERED: NEBULIZER UNIT (17:21)
== END 2018-05-29 18:30 | disposition home health service (06) | DRG 603 ==
LOC: M.ERS 02:51 → M.3W 04:50 → M.TBA-ER 04:50 → M.ERS 05:21 → M.3W 06:04
PROVIDERS: Emergency Medicine; Internal Medicine; ADMIT Family Medicine
DX: L03.116 Cellulitis of left lower limb (principal); N39.0 Urinary tract infection, site not specified; R65.10 Systemic inflammatory response syndrome (SIRS) of non-infectious origin without acute organ dysfunction; Z68.43 Body mass index [BMI] 50.0-59.9, adult; L03.115 Cellulitis of right lower limb; I87.2 Venous insufficiency (chronic) (peripheral); B36.8 Other specified superficial mycoses; M19.90 Unspecified osteoarthritis, unspecified site; E88.09 Other disorders of plasma-protein metabolism, not elsewhere classified; D50.9 Iron deficiency anemia, unspecified; E66.01 Morbid (severe) obesity due to excess calories; Z79.82 Long term (current) use of aspirin; Z79.899 Other long term (current) drug therapy; Z86.711 Personal history of pulmonary embolism; Z79.01 Long term (current) use of anticoagulants; Z91.14 Patient's other noncompliance with medication regimen; Z86.718 Personal history of other venous thrombosis and embolism

== ENCOUNTER 2018-12-05 13:02 | Inpatient (IN) | payer OTHER ==
[~2018-12-05] VITALS: Ht 157.5 cm; Wt 128.4 kg
[~2018-12-05 13:02] MED LIST changes: +ASA81BEC PO; +NEBULIZER UNIT
[2018-12-05 13:03] VITALS: BP 128/63
[2018-12-05] MEDS ORDERED: SPIRONOLACTONE25 M1 PO (13:29)
[2018-12-05] MEDS ORDERED: COUMADIN 2 MG TA2 M1 PO (13:29)
[2018-12-05] MEDS ORDERED: IRON325 PO (13:29)
[2018-12-05 13:30] LABS: URINE BILIRUBIN NEGATIVE (Negative); URINE BLOOD 1+ (Negative); URINE CLARITY CLEAR; URINE COLOR YELLOW; URINE GLUCOSE-RANDOM NEGATIVE (Negative); URINE KETONES NEGATIVE (Negative); URINE PROTEIN 2+ (Negative); URINE SPECIFIC GRAVITY 1.015 (1.005-1.030); URINE UROBILINOGEN 0.2 E.U./dl (0.2-1.0)
[2018-12-05 13:37] LABS: URINE LEUKOCYTES-REFLEX 2+ (Negative); URINE NITRITE-REFLEX POSITIVE (Negative)
[2018-12-05 13:44] LABS: ABSOLUTE BASOPHILS 0.1 thou/uL (0.0-0.2); ABSOLUTE EOSINOPHILS 0.2 thou/uL (0.0-0.7); ABSOLUTE LYMPHOCYTES 1.4 thou/uL (0.8-5.3); ABSOLUTE MONOCYTES 0.7 thou/uL (0.0-1.2); ABSOLUTE NEUTROPHILS 6.2 thou/uL (1.6-8.1); BASOPHILS 0.8 %; EOSINOPHILS 2.7 %; HEMATOCRIT 36.4 % (37.0-47.0); HEMOGLOBIN 11.8 gm/dL (12.0-15.0); LYMPHOCYTES 15.9 %; MCH 27.2 pg (26.0-34.0); MCHC 32.3 g/dL (28.0-37.0); MCV 84.1 fL (80.0-100.0); MONOCYTES 8.5 %; MPV 7.2 fl. (7.2-11.1); NUCLEATED RBCS 0 /100WBC; PLATELET COUNT* 458 thou/uL (150-400); POLYS 72.1 %; RBC 4.32 mil/uL (4.20-5.00); RDW-CV 16.9 % (10.5-14.5); WBC 8.6 thou/uL (4.0-11.0)
[2018-12-05 13:45] LABS: SQUAMOUS 4-10 Moderate /LPF (0-3)
[2018-12-05 13:46] LABS: URINE WBC-REFLEX >25 Many /HPF (0-5)
[2018-12-05 13:47] LABS: BACTERIA-REFLEX 1-9 Few /HPF (None Seen); URINE RBC 0-2 Rare /HPF (0-2)
[2018-12-05 13:48] LABS: CASTS None Seen /LPF (None Seen); CRYSTALS None Seen /LPF (None Seen); MUCUS None Seen strn/LPF (None Seen)
[2018-12-05 13:55] LABS: ANION GAP 11 mmol/L (7-16); BUN 17 mg/dL (7-18); CALCIUM 8.9 mg/dL (8.5-10.1); CHLORIDE 105 mmol/L (98-107); CO2 26 mmol/L (21-32); CREATININE 0.9 mg/dL (0.6-1.3); GLUCOSE 103 mg/dL (70-99); POTASSIUM 3.8 mmol/L (3.5-5.1); SODIUM 142 mmol/L (136-145)
[2018-12-05 13:59] LABS: APTT 37.4 Seconds (25.0-31.3); INR 2.8; PROTIME 28.3 Seconds (9.20-11.50)
[2018-12-05 14:06] LABS: ALBUMIN 2.5 g/dL (3.4-5.0); ALKALINE PHOSPHATASE 90 U/L (46-116); NT-PRO BRAIN NAT PEPTIDE 147 pg/mL (<300); SGOT 15 U/L (15-37); SGPT 15 U/L (30-65); TOTAL BILIRUBIN 0.6 mg/dL (<0.1-1.0); TOTAL PROTEIN 7.8 g/dL (6.4-8.2); TROPONIN-I LEVEL <0.06 ng/mL (<0.06)
[2018-12-05 15:30] VITALS: BP 151/51
--- NOTE | 2018-12-05 15:43 | EKG ---
[place] [address] ELECTROCARDIOGRAM REPORT Name: CHIKI TREVINO I Room: [place] [address] ADM IN ..#: [id number] Admission: 12/05/18 Attend Phys: Aga Orourke Discharge: Date of : 41 Report #: [id number] THIS REPORT FOR: //name// [facility] ED Test Date: 2018-12-05 Test Time: 13:40:29 Pat Name: CHIKI TREVINO Department: Room: [facility] Gender: F Wireless Sales Representative: [place] : 1945 Requested By: Baudilio Mahajan Order Number: [id number] MD: Kei Tabares Measurements Intervals [place] Rate: 76 P: 0 SD: 49 QRS: 85 QRSD: 92 T: 37 QT: 394 QTc: 444 Interpretive Statements Sinus rhythm Short SD interval Probable left atrial enlargement Anterior infarct, old Compared to ECG 07/21/2017 09:18:19 Short SD interval now present Myocardial infarct finding still present Electronically Signed On 12-05-2018 15:42:57 CDT by Kei Tabares [email or web address] <ELECTRONICALLY SIGNED> By: Kei Tabares MD, [facility] 12/05/18 1542 1340 1340 Kei Tabares MD, [facility] /EPI
[2018-12-05 15:50] VITALS: BP 151/60
--- NOTE | 2018-12-05 15:50 | NUR ---
ADMIT NOTE - PT ADMITTED FROM ED. PT LIVES WITH FRIEND WHO IS HER CAREGIVER. IV PRESENT IN LEFT UPPER ARM. SKIN FOLDS IN PERIAREA VERY EXCORIATED INCLUDING UNDER PANNUS, GROIN, AND ANAL AREA. ESPINOZA TO ALBINO. WILL CONTINUE TO MONITOR.
[2018-12-05 20:00] VITALS: BP 113/45
[2018-12-06] VITALS: BP 148/62
[2018-12-06 03:50] VITALS: BP 138/58
--- NOTE | 2018-12-06 05:03 | NUR ---
ASSUMED PT CARE AT APPROX 1930. PT IS AWAKE AND ORIENTED X4. VSS ON 2L/NC. DISPUTE RESOLUTION SPECIALIST IN PLACE TRACING SR. EXCORIATIONS NOTED ON PERINEAL AREA, SKIN FOLDS (LEGS, PANNUS, GROIN) AND BUTTOCKS. PERINEAL CARE DONE, APPLIED NYSTATIN CREAM ON ELBERT. SKIN FOLDS CLEANSED, INTERDRY APPLIED ON SKINFOLDS. SEE PICTURES @ CHART. POSITIONING DONE Q2H. CALL LIGHT WITHIN REACH. HOURLY ROUNDING DONE FOR PT SAFETY.
[2018-12-06 05:04] LABS: INR 2.8; PROTIME 28.2 Seconds (9.20-11.50)
[2018-12-06 05:24] LABS: CALCIUM 8.7 mg/dL (8.5-10.1); CREATININE 0.8 mg/dL (0.6-1.3); POTASSIUM 3.9 mmol/L (3.5-5.1)
[2018-12-06 08:00] VITALS: BP 121/61
[2018-12-06 11:41] VITALS: BP 117/45
--- NOTE | 2018-12-06 12:57 | NUR ---
Pt is A&O. Resides at home with a friend. Friend completes IADLs. Pt is fairly independent with ADLs, Pt gives herself sponge baths and can dress her upper body. Pt uses a grabber to put her pants on. Pt has a walker and wc, Pt states that she only uses the wc for transport. Pt also has a grab bar. Hx of [facility]. Pt is current with [facility] and wants to resume HH at de. Hx of skilled at [facility]. Pt states that she was recently in skilled and used her 20 skilled days. Goal is home at de. Following. [facility] p:[phone] f:[phone]
[2018-12-06 15:31] VITALS: BP 118/53
--- NOTE | 2018-12-06 16:54 | NUR ---
SHIFT NOTE - PT WORKED WITH PT/OT THIS SHIFT. TOLERATED FAIR. FRIEND AT BEDSIDE FOR MOST OF THIS SHIFT. WILL CONTINUE TO MONITOR.
--- NOTE | 2018-12-06 17:17 | NUR ---
WOUND NURSE: PATIENT SEEN TO FRANSISCO SKIN IRRITATION IN SKIN FOLDS AND BUTTOCKS WHICH APPEARS TO BE MOISTURE ASSOCIATED. PER PATIENT'S STAFF NURSE CARING FOR HER, PATIENT HAS NYSTATIN POWDER BID IN USE FOR RASH WELL USE OF INTERDRY WITH SILVER FOR SKIN FOLDS. PATIENT USING MOISTURE BARRIER CREAM Q SHIFT FOR PROTECTION ON BUTTOCKS. PATIEN IS ON A Q 2 HR TURN SCHEDULE. RECOMMEND CONTINUING THE CURRENT PLAN OF NURSING CARE LISTED ABOVE.
[2018-12-06 20:10] VITALS: BP 129/55
[2018-12-07] VITALS: BP 122/41
[2018-12-07 04:01] VITALS: BP 118/46
[2018-12-07 04:44] LABS: INR 2.7; PROTIME 27.4 Seconds (9.20-11.50)
--- NOTE | 2018-12-07 05:41 | NUR ---
PT CARE ASSUMED AT 1930. SAT MAINTAINED IN O2. ALERT AND ORIENTED X4. CALL LIGHT WITHIN REACH AND BED IN LOW POSITION. DENIES PAIN AND SOB. HOURLY ROUNDING DONE FOR PT SAFETY.
[2018-12-07 08:00] VITALS: BP 144/46
--- NOTE | 2018-12-07 08:00 | NUR ---
AM ASSESSMENT COMPLETE, DEFER TO COMPUTER CHARTING. ABRADING MACHINE TENDER TRACKING SR. 02 ON 2L PER NC, SOA NOTED WITH ACTIVITY. 1 TO 2+ GENERALIZED EDEMA. PATIENT IRRITABLE THIS AM, REASSURANCE GIVEN. DENIES PAIN OR NAUSEA. HOB ELEVATED. CALL LIGHT WITHIN REACH. WILL MONITOR.
--- NOTE | 2018-12-07 11:16 | NUR ---
Nutrition: class III morbid obesity noted. Wt down from prior admit. Pt reports good appetite, denied acute nutrition concerns. Meds and labs reviewed. Declined diet edu. Assessed at low nutrition risk.
[2018-12-07 11:34] VITALS: BP 96/51
--- NOTE | 2018-12-07 14:34 | NUR ---
Pt is to work with PT/OT tomorrow and then make decision as to whether she wants to go to SNF or home per Dr. Rich. pt's preference is [facility], as she has been there in the past. pt signed 'Choice of Vendor' form. CM contacted Nicolle at [facility] to see if a bed was available. CM faxed referal packet to Nicolle @ [phone]. Philomena, pediatric social worker, w/[facility] called to speak w/this CM re: pt being "hotline" d/t "condition of the home and c/o the pt's caregiver not being able to "physically care for her." Philomena stated she will visit pt at hospital today and wanted CM to know she was involved. [phone] x [phone]. CM will cont to follow and assist as needed.
--- NOTE | 2018-12-07 14:57 | NUR ---
LION received a call from Nicolle @ [facility] stating pt was a "financial denial" d/t fact pt owes the facility money. Nicolle said the pt can make a payment and then she will be reconsidered. pt notified by LION. CM contact Mell @ [facility], , to see if there is bed is available, as this was pt second choice for SNF. LION faxed referral packet to [phone].
[2018-12-07 15:34] VITALS: BP 127/47
--- NOTE | 2018-12-07 18:28 | NUR ---
OPERATIONAL ASSISTANT TRACKING WITH NO CHANGE IN RHYTHM. UNEVENFUL DAY, ASSESSMENT UNCHANGED. FRIENDS IN EARLIER TO VISIT. SLOWLY ADVANCING TOWARD DISCHARGE GOALS.
[2018-12-07 20:10] VITALS: BP 132/60
[2018-12-08] VITALS: BP 139/75; BP 149/59
[2018-12-08 04:00] VITALS: BP 151/53
--- NOTE | 2018-12-08 07:20 | NUR ---
CHANGE OF SHIFT BEDSIDE REPORT GIVEN PATIENT SEEN AT BEDSIDE, IN BED ASLEEP ASSUMED PATIENT CARE
[2018-12-08 07:50] LABS: INR 2.5; PROTIME 25.2 Seconds (9.20-11.50)
--- NOTE | 2018-12-08 07:54 | NUR ---
PT CARE ASSUMED AT 1930. SAT MAINTAINED IN O2. ALERT AND ORIENTED X4. CALL LIGHT WITHIIN REACH AND BED IN LOW POSITION. HOURLY ROUNDING DONE FOR PT SAFETY. DENIES PAIN AND SOB.
[2018-12-08 08:00] VITALS: BP 135/42
[2018-12-08 12:00] VITALS: BP 130/61
[2018-12-08 16:00] VITALS: BP 138/43
[2018-12-08 20:00] VITALS: BP 128/41
[2018-12-09] VITALS: BP 139/75
[2018-12-09 04:00] VITALS: BP 124/44
[2018-12-09 07:03] LABS: INR 2.4; PROTIME 24.6 Seconds (9.20-11.50)
--- NOTE | 2018-12-09 07:20 | NUR ---
CHANGE OF SHIFT, BEDSIDE REPORT GIVEN PATIENT SEEN AT BEDSIDE, IN BED ASLEEP ASSUMED PATIENT CARE
--- NOTE | 2018-12-09 07:36 | NUR ---
PT CARE ASSUMED AT 1930. SAT MAINTAINED IN RA. ALERT AND ORIENTED X4. CALL LIGHT WITHINI REACH AND BED IN LOW POSITION. DENIES PAIN AND SOB. HOURLY ROUNDING DONE FOR PT SAFETY.
[2018-12-09 08:00] VITALS: BP 138/51
[2018-12-09 13:39] VITALS: BP 121/54
[2018-12-09 18:40] VITALS: BP 121/44
[2018-12-09 19:50] VITALS: BP 130/52
[2018-12-10] VITALS: BP 139/52
[2018-12-10 04:00] VITALS: BP 112/57
--- NOTE | 2018-12-10 04:50 | NUR ---
PT CARE ASSUMED AT 1930. SAT MAINTAINED IN RA. ALERT AND ORIENTED X4. CALL LIGHT WITHIIN REACH AND BED IN LOW POSITION. DENIES PAIN AND SOB. HOURLY ROUNDING DONE FOR PT SAFETY.
[2018-12-10 05:34] LABS: INR 2.4; PROTIME 24.5 Seconds (9.20-11.50)
--- NOTE | 2018-12-10 10:31 | H ---
[address] [address] HISTORY AND PHYSICAL Name: CHIKI TREVINO I Room: [address] IN [facility]#: [id number] Admission: 12/05/18 Attend Phys: Aga Orourke Discharge: Date of : 43 Report #: [id number] THIS REPORT FOR: //name// CC: Kei Craven DATE OF SERVICE: 12/05/2018 CHIEF COMPLAINT: Weakness and a little bit of confusion. HISTORY OF PRESENT ILLNESS: The patient is a 73-year-old female, who presented to us here because of a little bit of lethargy and confusion apparently at home and weakness. The patient has a roommate caregiver, who takes care of her at home. Apparently, for the last 2-3 days she seems to be very weak and getting confused. The urine also smells bad and so she felt that the patient started having urinary tract infection, having issues before. She was then seen in the Emergency Department, noted to have UTI and being admitted for that. PAST MEDICAL HISTORY: Includes arthritis, morbid obesity, chronic venous stasis, and PE in the past and has been on Coumadin for that. PAST SURGICAL HISTORY: None. MEDICATIONS: Includes Lasix 40 mg daily, oxygen, glucosamine, spironolactone, warfarin, and ferrous sulfate. ALLERGIES: No known drug allergies. SOCIAL HISTORY: The patient lives with a caregiver roommate. No smoking, alcohol, or illicit drug use. FAMILY HISTORY: Not pertinent. REVIEW OF SYSTEMS: The patient denies any fever, chills. Occasional cough. Denies any chest pain. No shortness of breath. No nausea. No vomiting. She does have a little bit of confusion, sleeping, lethargy, weakness, and the urine badly smells per caregiver. A 12-point review of systems is unremarkable as mentioned above. The patient apparently has an ulcer and that they have been dealing with at home per caregiver. PHYSICAL EXAMINATION: VITAL SIGNS: Temperature is 36.6, heart rate is 78, respirations 16, blood pressure is 151/60, saturation is 98% on 2 liters of nasal cannula. GENERAL: The patient is alert, morbidly obese, not in [place] [address] HISTORY AND PHYSICAL Name: CHIKI TREVINO I Room: [address]#: [id number] Admission: 12/05/18 Attend Phys: Aga Orourke Discharge: Date of : 43 Report #: [id number] HEENT: Normocephalic, atraumatic. Nares patent. Clear oropharynx. NECK: Supple. No lymphadenopathy. CARDIOVASCULAR: Normal rate, regular rhythm. No murmurs. RESPIRATORY: Clear to auscultation bilaterally. No crackles. ABDOMEN: Soft, nontender, nondistended. Good bowel sounds. No organomegaly. GENITOURINARY: Deferred. MUSCULOSKELETAL: Good strength. NEUROLOGIC: She is actually awake and arousable, but she felt tired. LABORATORY STUDIES: The patient's white count is 8.6, hemoglobin is 6.1, and platelets 458. Coags: INR is 2.8. Sodium is 142, potassium is 3.8, chloride is 105, carbon dioxide is 26, anion gap is 11, BUN is 17, creatinine is 0.9, and glucose is 103. Lactic acid is 2. Calcium is 8.9. Total bilirubin is 0.6. AST and ALT are unremarkable and alkaline phosphatase is 90. Troponin is negative. UA did show 2+ protein, 1+ blood, nitrite positive, and leukocyte positive. IMAGING STUDIES: Showed a chest x-ray, which showed cardiomegaly, pulmonary venous engorgement, suspected a small left and very small right pleural effusion. She had an echo done in 05/2018, which showed normal-sized ventricle with an EF of 55%-60%. IMPRESSION: 1. The patient is a 73-year-old female admitted in the hospital for mild encephalopathy; likely secondary to her urinary tract infection present on admission. 2. Bilateral lower extremity edema with venous stasis. 3. Intertrigo bilateral groin 4. History of pulmonary embolism. 5. The patient is on anticoagulation. 6. Morbid obesity. 7. Arthritis. 8. Excoriations on the buttock. PLAN: The patient will be admitted. I expect this patient is going to be here more than 2 midnights. We will go ahead and continue Rocephin, that has been given in the ED. We will give her Lasix for her swelling. We will switch her p.o. to IV Lasix. We will give potassium with that. We will follow her labs in the morning. We will also do an ultrasound of the legs and do lymphedema if there is no DVT. We will put her on nystatin on the groin. We will ask Wound Care to see the ?ulcer or excoriations. I was unable to assess as the patient was lying down and difficult to move her with no help, so I will have to ask the nurses to take [address] [address] HISTORY AND PHYSICAL Name: CHIKI TREVINO I Room: [address]#: [id number] Admission: 12/05/18 Attend Phys: Aga Orourke Discharge: Date of : 41 Report #: [id number] pictures of it. We will do wound care per protocol. Discussed with the patient regarding code status and she is a full code. <ELECTRONICALLY SIGNED> By: Geovanna Craven MD 12/10/18 1031 [id number] Craven MD /[facility]
[2018-12-10 11:39] VITALS: BP 124/47
[2018-12-10 11:59] VITALS: BP 124/47
--- NOTE | 2018-12-10 12:05 | NUR ---
ALCOHOL AND DRUG COUNSELOR INFORMED THAT THE PATIENT WOULD D/C HOME TODAY WITH [facility]. D/C UX DEVELOPER DESIGNER SPOKE TO INTAKE WITH [facility] AND THEY INFORM THAT THE PATIENT IS NOT CURRENTLY ON-SERVICE, SO THEY WOULD NEED NEW ORDERS FAXED. D/C UX DEVELOPER DESIGNER FAXED THE PATIENT'S FACESHEET, H&P, AND D/C ORDERS TO [facility]. CM WILL REMAIN AVAILABLE TO ASSIST AND FOLLOW NEEDED. [facility] PHONE: [phone] FAX: [phone]
[2018-12-10] MEDS ORDERED: KEFLEX500 M1 PO (14:40)
== END 2018-12-10 15:40 | disposition home health service (06) | DRG 689 ==
LOC: M.ERS 13:02 → M.TBA-ER 14:44 → M.2W 14:44
PROVIDERS: Family Medicine; ADMIT Internal Medicine
DX: N39.0 Urinary tract infection, site not specified (principal); G93.41 Metabolic encephalopathy; Z68.43 Body mass index [BMI] 50.0-59.9, adult; E44.0 Moderate protein-calorie malnutrition; E66.01 Morbid (severe) obesity due to excess calories; M19.90 Unspecified osteoarthritis, unspecified site; I87.8 Other specified disorders of veins; L30.4 Erythema intertrigo; S30.810A Abrasion of lower back and pelvis, initial encounter; X58.XXXA Exposure to other specified factors, initial encounter; I89.0 Lymphedema, not elsewhere classified; I10 Essential (primary) hypertension; Z87.440 Personal history of urinary (tract) infections; Z79.899 Other long term (current) drug therapy; Z79.01 Long term (current) use of anticoagulants; Z86.711 Personal history of pulmonary embolism; Y93.89 Activity, other specified; Y92.89 Other specified places as the place of occurrence of the external cause; Y99.8 Other external cause status

== ENCOUNTER → 2019-12-25 | Outpatient (CLI) | payer OTHER ==
[~2019-12-25] MED LIST changes: +COUMADIN 2 MG TA2 M1 PO; +IRON325 PO; +KEFLEX500 M1 PO; +SPIRONOLACTONE25 M1 PO
== END ==
LOC: M.WC 10:00
PROVIDERS: ATTEND Surgery
DX: L89.312 Pressure ulcer of right buttock, stage 2 (principal); L89.322 Pressure ulcer of left buttock, stage 2; I89.0 Lymphedema, not elsewhere classified; I87.8 Other specified disorders of veins; E66.01 Morbid (severe) obesity due to excess calories; M19.90 Unspecified osteoarthritis, unspecified site; Z86.711 Personal history of pulmonary embolism; Z68.43 Body mass index [BMI] 50.0-59.9, adult

== ENCOUNTER → 2020-01-08 | Outpatient (CLI) | payer OTHER | LOC: M.WC 05:46 | PROVIDERS: ATTEND Surgery | DX: L89.312 Pressure ulcer of right buttock, stage 2 (principal); L89.322 Pressure ulcer of left buttock, stage 2; I89.0 Lymphedema, not elsewhere classified; I87.8 Other specified disorders of veins; E66.01 Morbid (severe) obesity due to excess calories; M19.90 Unspecified osteoarthritis, unspecified site; Z86.711 Personal history of pulmonary embolism; Z68.43 Body mass index [BMI] 50.0-59.9, adult ==

== ENCOUNTER → 2020-02-05 | Outpatient (CLI) | payer OTHER | LOC: M.WC 04:26 | PROVIDERS: ATTEND Surgery | DX: L89.312 Pressure ulcer of right buttock, stage 2 (principal); L89.322 Pressure ulcer of left buttock, stage 2; E66.01 Morbid (severe) obesity due to excess calories; I89.0 Lymphedema, not elsewhere classified; I87.8 Other specified disorders of veins; M19.90 Unspecified osteoarthritis, unspecified site; Z86.711 Personal history of pulmonary embolism; Z68.43 Body mass index [BMI] 50.0-59.9, adult ==

== ENCOUNTER 2021-04-10 14:09 | Inpatient (IN) | payer OTHER ==
[~2021-04-10] VITALS: Ht 157.5 cm; Wt 150.6 kg
[2021-04-10 14:14] VITALS: BP 191/55
[2021-04-10 14:35] LABS: URINE BILIRUBIN NEGATIVE (Negative); URINE BLOOD 1+ (Negative); URINE CLARITY CLEAR; URINE COLOR YELLOW; URINE GLUCOSE-RANDOM NEGATIVE (Negative); URINE KETONES NEGATIVE (Negative); URINE LEUKOCYTES-REFLEX NEGATIVE (Negative); URINE NITRITE-REFLEX NEGATIVE (Negative); URINE PROTEIN NEGATIVE (Negative); URINE SPECIFIC GRAVITY 1.015 (1.005-1.030); URINE UROBILINOGEN 0.2 E.U./dl (0.2-1.0)
[2021-04-10 14:39] LABS: BACTERIA-REFLEX None Seen /HPF (None Seen); CASTS None Seen /LPF (None Seen); CRYSTALS None Seen /LPF (None Seen); SQUAMOUS 4-10 Moderate /LPF (0-3); URINE RBC 3-10 Few /HPF (0-2); URINE WBC-REFLEX None Seen /HPF (0-5)
[2021-04-10 15:26] LABS: HEMATOCRIT 41.7 % (37.0-47.0); HEMOGLOBIN 13.6 gm/dL (12.0-15.0); MCH 29.8 pg (26.0-34.0); MCHC 32.7 g/dL (28.0-37.0); MCV 91.1 fL (80.0-100.0); MPV 7.3 fl. (7.2-11.1); NUCLEATED RBCS 0 /100WBC; PLATELET COUNT* 260 thou/uL (150-400); RBC 4.58 mil/uL (4.20-5.00); WBC 5.8 thou/uL (4.0-11.0)
[2021-04-10 15:37] LABS: CALCIUM 8.6 mg/dL (8.5-10.1); CREATININE 0.9 mg/dL (0.6-1.3); POTASSIUM 4.5 mmol/L (3.5-5.1)
[2021-04-10 15:52] LABS: ALBUMIN 2.8 g/dL (3.4-5.0); TOTAL BILIRUBIN 0.6 mg/dL (<0.1-1.0); TOTAL PROTEIN 7.8 g/dL (6.4-8.2)
[2021-04-10 15:56] LABS: ABSOLUTE LYMPHOCYTES 0.4 thou/uL (0.8-5.3); ABSOLUTE MONOCYTES 0.6 thou/uL (0.0-1.2); ABSOLUTE NEUTROPHILS 4.8 thou/uL (1.6-8.1); PLATELET ESTIMATE ADEQUATE
[2021-04-10 18:18] VITALS: BP 159/76
[2021-04-10] MEDS ORDERED: WARFARIN SODIUM2 MG PO (19:00)
[2021-04-10] MEDS ORDERED: POTASSIUM99 M1 PO (19:03)
[2021-04-10] MEDS ORDERED: VITAMIN C250 MG PO (19:03)
[2021-04-10 19:35] VITALS: BP 126/56
[2021-04-11] LABS: INR 2.4; PROTIME 24.5 Seconds (9.20-11.50)
[2021-04-11 00:30] VITALS: BP 141/63
--- NOTE | 2021-04-11 02:04 | NUR ---
ASSUMED PATIENT CARE AT 193. INITIAL ASSESSMENT AT 193 WITH ADMISSION ROUTINES RESUMED. PATIENT HAD ARRIVE TO UNIT PRIOR TO THIS SHIFT. PATIENT IS FOUND TO BE ALERT AND ORIENTED X 4. STATES NO BM FOR 3 DAYS. HER GOAL FOR ADMISSION IS TO HAVE A BM, RETURN TO BEING ABLE TO BE UP WITH WALKER INDEPENDENTLY AND GET OFF SOME OF THE WATER WEIGHT OF HER LE'S. DRESSING PLACED OVER THE LEFT LAT LE SKIN TEAR. THIS WAS SUSTAINED DURING EMS PICK-UP AND AND TRANSFER PER REPORT. PATIENT HAS REFUSED TO HAVE LE'S ELEVATED OR MAKE ANY SIGNIFICANT TURNS. PATIENT MAY NEED SPECIALTY BED DUE TO OBESITY. VITAL SIGNS STABLE. FALL PRECAUTIONS IN PLACE. HAVE BEEN ABLE TO PROVIDED PATIENT WITH MEDICATION FOR CONSTIPATION AT HER REQUEST AND RESUME HOME MED COUMADIN OF THIS WRITING. VITAL SIGNS STABLE WITH O2 ON AT 2L/MIN. PATIENT DOES USE O2 AT HOME FOR HS AND PRN. CONTINUE TO MONITOR.
--- NOTE | 2021-04-11 06:09 | NUR ---
NO ADDITIONS TO PREVIOUS NOTE FOR END OF SHIFT.
[2021-04-11 08:30] VITALS: BP 155/61
--- NOTE | 2021-04-11 10:25 | EKG ---
[place] [address] ELECTROCARDIOGRAM REPORT Name: CHIKI TREVINO I Room: [address] IN ..#: [id number] Admission: 04/10/21 Attend Phys: Kevin Larios Discharge: Date of : 41 Date of Service: 04/10/21 1406 Report #: [id number] THIS REPORT FOR: //name// [facility] ED Test Date: 2021-04-10 Test Time: 14:06:16 Pat Name: CHIKI TREVINO Department: Room: [facility] Gender: F Sausage Wrapper: CHON : 1945 Requested By: Baudilio Mahajan Order Number: [id number] MD: Celio Duran Measurements Intervals [place] Rate: 73 P: 28 MA: 170 QRS: 103 QRSD: 106 T: 64 QT: 387 QTc: 427 Interpretive Statements Sinus rhythm Right axis deviation Low voltage, precordial leads Anteroseptal infarct, old Compared to ECG 12/05/2018 13:40:29 Right-axis deviation now present Low QRS voltage now present Short MA interval no longer present Myocardial infarct finding still present Electronically Signed On 04-11-2021 10:24:49 CDT by Celio Duran [email or web address] <ELECTRONICALLY SIGNED> By: Celio Duran MD, [facility] 04/11/21 1024 1406 1406 Celio Duran MD, FAC /EPI
[2021-04-11 16:00] VITALS: BP 161/66
--- NOTE | 2021-04-11 17:40 | NUR ---
PATIENT RESTING IN BED. PATIENT HAS REFUSED TURNS. PATIENT HAS HAD COMPLAINTS OF CONSTIPATION, COLACE AND SENNA GIVEN, REFUSED MILK OF MAG. PATIENT DENIES ANY NEEDS AT THIS TIME. CALL MAGDY ELLISON.
[2021-04-11 19:40] VITALS: BP 128/60
[2021-04-12 04:35] LABS: HEMOGLOBIN 13.5 gm/dL (12.0-15.0); MCH 29.7 pg (26.0-34.0); MCV 90.1 fL (80.0-100.0); MPV 7.5 fl. (7.2-11.1); RBC 4.55 mil/uL (4.20-5.00); RDW-CV 14.9 % (10.5-14.5); WBC 8.1 thou/uL (4.0-11.0)
[2021-04-12 04:36] LABS: CALCIUM 8.6 mg/dL (8.5-10.1); POTASSIUM 3.7 mmol/L (3.5-5.1)
--- NOTE | 2021-04-12 05:06 | NUR ---
PATIENT HAS REMAINED ALERT AND ORIENTED X 4. RESTING QUIETLY IN BED. REFUSED TURNS. NO BM YET FROM PROVIDED MEDS FOR CONSTIPATION. VITAL SIGNS STABLE. COMPLAINTS OF BEING HOT BUT DECLINED FAN. BED COVERS ADJUSTED. FALL PRECAUTIONS IN PLACE. CONTINUE TO MONITOR.
[2021-04-12 08:00] VITALS: BP 149/65
--- NOTE | 2021-04-12 10:32 | NUR ---
WOUND NURSE; PT IN PROCESS OF ECHOCARDIOGRAM, BUT ASSESSED LLE WOUND. PRESENTS MINOR CONTUSION ON LEFT POSTEROLATERAL LEG WITH BRUISING, AND SKIN TEAR ALONG THE PROXIMAL EDGE. THERE IS A MODERATE AMOUNT OF SEROUSANGUINOUS DRAINAGE PRESENT. LEG WITH RUBOR AND EDEMA, NO WARMTH. GREAT TOES WITH KNARLEY THICKENED YELLOW NAILS. CLEANSED WOUND WITH SOAP AND WATER, RINSED, THEN PATTED DRY. APPLIED OPTIFOAM GENTLE AG, THEN WRAPPED WITH DINAH WRAP TOES TO KNEE. PLAN TO CHECK BUTTOCKS ONCE TEST IS COMPLETE. DR. KITCHEN APPROVED PODIATRY CONSULT TO ADDRESS NAILS AND WOUND.
--- NOTE | 2021-04-12 11:47 | 2DMMODE ---
[place] [address] 2 D/M-MODE ECHOCARDIOGRAM Name: CAMILLEMARISSACHIKI I Room: [address] IN [facility]#: [id number] Admission: 04/10/21 Attend Phys: Kevin Larios Discharge: Date of : 41 Date of Service: 04/12/21 1147 Report #: [id number] THIS REPORT FOR: cc: FAM - No family physician/PCP FAM - No family physician/PCP Kei Tabares MD [facility] ~ APPROVED REPORT Study performed: 04/12/2021 10:08:35 EXAM: Comprehensive 2D, Doppler, and color-flow Echocardiogram Patient Location: In-Patient Room #: [facility] Status: routine BSA: 2.37 HR: 71 bpm BP: 128/60 mmHg Rhythm: NSR Other Information Study Quality: Good Indications Congestive Heart Failure 2D Dimensions IVSd: 11.53 (7-11mm) LVOT Diam: 19.46 (18-24mm) LVDd: 43.34 mm PWd: 8.26 (7-11mm) Ascending Ao: 30.15 (22-36mm) LVDs: 25.09 (25-40mm) Aortic Root: 26.90 mm Aortic Valve AoV Peak Artemio.: 1.78 m/s AO Peak Gr.: 12.74 mmHg LVOT Max P.92 mmHg AO Mean Gr.: 7.08 mmHg LVOT Mean P.34 mmHg LVOT Max V: 1.32 m/s AO V2 VTI: 38.35 cm LVOT Mean V: 0.84 m/s YULIYA (VTI): 2.21 cm2 LVOT V1 VTI: 28.46 cm Mitral Valve E/A Ratio: 0.80 MV Decel. Time: 297.66 ms MV E Max Artemio.: 0.94 m/[place] [address] 2 D/M-MODE ECHOCARDIOGRAM Name: CHIKI TREVINO I Room: [address] IN [facility]#: [id number] Admission: 04/10/21 Attend Phys: Kevin Larios Discharge: Date of : 41 Date of Service: 04/12/21 1147 Report #: [id number] PHT: 86.32 ms MVA (PHT): 2.55 cm2 TDI Lateral E' Artemio.: 0.09 m/s Pulmonary Valve PV Peak Artemio.: 1.39 m/s PV Peak Gr.: 7.77 mmHg Left Ventricle The left ventricle is normal size. There is normal LV segmental wall motion. There is normal left ventricular wall thickness. Left ventricular systolic function is normal. The left ventricular ejection fraction is within the normal range. LVEF is 55-60%. Grade I - abnormal relaxation pattern. Right Ventricle The right ventricle is normal size. The right ventricular systolic function is normal. Atria The left atrium size is normal. The right atrium size is normal. Aortic Valve The Aortic valve is sclerotic. No aortic regurgitation is present. There is no aortic valvular stenosis. Mitral Valve The mitral valve is normal in structure. There is no mitral valve regurgitation noted. No evidence of mitral valve stenosis. Tricuspid Valve The tricuspid valve is normal in structure. Unable to assess PA pressure. Trace tricuspid regurgitation. Pulmonic Valve The pulmonary valve is normal in structure. There is no pulmonic valvular regurgitation. Great Vessels The aortic root is normal in size. IVC is normal in size and collapses >50% with inspiration. Pericardium [place] [address] 2 D/M-MODE ECHOCARDIOGRAM Name: LADONNA TREVINOHARDEEP Winkler Room: [address]#: [id number] Admission: 04/10/21 Attend Phys: Kevin Larios Discharge: Date of : 41 Date of Service: 04/12/21 1147 Report #: [id number] <Conclusion> LVEF is 55-60%. The Aortic valve is sclerotic. <ELECTRONICALLY SIGNED> By: Kei Tabares MD, [facility] 04/12/21 1147 1147 114 Kei Tabares MD, FACC /INF
--- NOTE | 2021-04-12 11:54 | NUR ---
WOUND NURSE: PATEINT WITH REDNESS AND SOME EXCORIATION TO BILATERAL BUTTOCKS CHARACTERISTIC OF INCONTINENCE ASSOCIATED DERMATITIS. CLEANSED WITH SOAP AND WATER, RINSED, PATTED DRY. APPLIED Z-GUARD MOISTURE BARRIER PASTE TO AFFECTED AREA. RECOMMEND PERICARE WITH THIS PRODUCT Q SHIFT AND PRN A NURSING INTERVENTION. PATIENT WITH DIFFICULTY REPOSITIONING IN BED, OFFERED LOWAIRLOSS MATTRESS, BUT SHE REFUSED. PATIENT INSTRUCTED ON NEED TO Q 2 HOUR REPOSITIONING. STATES SHE UNDERSTANDS.
--- NOTE | 2021-04-12 13:45 | NUR ---
Nutrition: Pt admitted with weakness, CHF. Seen for pressure ulcer risk. Ulcer on LLE, and dermatitis on coccyx. Wt is near usual, 332#. Regular diet ordered, pt eating well. H/o OBE. BG 109, alb 2.8, prealb 14.9. Meds: warfarin, lasix. RD ordered Jerzy to aid in wound healing. GOALS: Jerzy bid, continue good meal intake, gradual wt loss over time. Mild risk.
[2021-04-12 16:00] VITALS: BP 105/39
--- NOTE | 2021-04-12 16:16 | NUR ---
WOUND NURSE: PATIENT SEEN BY DR JULISA DPM AT 1500 AND TOE NAILS WERE DEBRIDED AND LLE WOUND ASSESSED AND DRESSING APPROVED BY HER. PATIENT TOLERATED THIS WELL.
--- NOTE | 2021-04-12 18:49 | NUR ---
patient alert oriented x4 , seen by the wound nurse and wound vac dressing change . patient toloratd well . had x-large bowel movement . patient medicationd administered as ordered . No issue voiced at this time .
[2021-04-12 20:15] VITALS: BP 151/79
--- NOTE | 2021-04-13 04:16 | NUR ---
PT A&O X 4. O2 SAT 98% ON 1.5L. MEDS GIVEN ORDERED. INSTERDRY APPLIED TO GROIN AREA. ESPINOZA IN PLACE. DRESSING TO LLE C/D/I. NO C/O PAIN. CALL LIGHT WITHIN REACH. WILL CONTINUE TO MONITOR.
[2021-04-13 08:16] VITALS: BP 147/53
--- NOTE | 2021-04-13 08:58 | NUR ---
Pt is A&O. Resides at home with roommate. Roommate assists with ADLs prn and completes IADLs. Pt has a walker and wc that she uses for community distances. Pt wears home o2 at 2l at [facility], provided through [employer]. Pt is current with [facility] and plans to resume at in. Goal is home. Following. [facility] p:[phone]
[2021-04-13 13:08] LABS: PROTIME 30.1 Seconds (9.20-11.50)
--- NOTE | 2021-04-13 14:35 | NUR ---
Anticipate dc in 1-2 days. Therapies to see. Plan home with [facility] at [place]. Cm received a call from [facility], Amadna Guy [phone], CM updated [facility] of dispo needs.
[2021-04-13 15:30] VITALS: BP 142/58
--- NOTE | 2021-04-13 19:17 | NUR ---
1300: IV CLOTTED. DR. HEREDIA INFORMED, STATED THAT IT IS OK TO LEAVE OUT AND NOT RESTART IV.
[2021-04-13 21:52] VITALS: BP 150/66
[2021-04-14 05:07] LABS: INR 3.1; PROTIME 30.5 Seconds (9.20-11.50)
--- NOTE | 2021-04-14 06:27 | NUR ---
PT A&OX4, VSS ON 1.5L O2 NC. NO IV ACCESS; PER SHIFT REPORT DR. KITCHEN IS AWARE AND OK'D NO IV. PT CO CONSTIPATION, PRN MEDS FOR CONSTIPATION GIVEN ODERED. PT REPOSTIONED Q2H, PT REFUSED AT TIMES. URINARY CATHETER IN PLACE.
[2021-04-14 08:00] VITALS: BP 155/72
--- NOTE | 2021-04-14 15:17 | NUR ---
Therapies pending. Plan home with [facility] at [place]. Update [facility], number in a previous CM note.
[2021-04-14 16:22] VITALS: BP 126/61
--- NOTE | 2021-04-14 18:05 | NUR ---
PATIENT RESTING IN BED, FRIEND AT BEDSIDE, INVOLVED WITH CARES. WOUND CARE DONE TO BUTTOCKS, Z-GUARD AND NYSTATIN POWDER APPLIED TO AREA. INTERDRY PLACED IN FOLDS OF GROIN AREA. NO IV ACCESS. ALERT AND ORIENTED X4. BED IN LOW/LOCKED POSITION. CALL LIGHT WITHIN REACH. NO QUESTIONS OR CONCEERNS VOICED.
[2021-04-14 22:18] VITALS: BP 151/64
[2021-04-15 05:09] LABS: INR 3.2; PROTIME 32.1 Seconds (9.20-11.50)
[2021-04-15 09:00] VITALS: BP 136/49
[2021-04-15] MEDS ORDERED: SENNA8.6 MG PO (12:44)
[2021-04-15] MEDS ORDERED: NYAMYC15 GM TOP (12:44)
--- NOTE | 2021-04-15 15:04 | NUR ---
PHONED [facility] [phone], ARRANGED VAN FOR DISCHARGE, PATIENT, ROOM MATE INFORMED VAN TO ARRIVE 5PM-5:30PM ROOM MATE RUBA, STATED CONCERNS THAT PATIENT IS NOT READY TO GO HOME AND HOME IS NOT READY FOR HER RE: CHANGING OF SHEETS, CLEANING BLOOD OUT OF CARPET. VERBALIZED SHE NEEDED TO STAY ONE MORE NIGHT AND A UNDERSTANDING TOOK PLACE BETWEEN THE HOSPITALIST AND PATIENT ABOUT GOING HOME THE INABILITY OF NOT BEING ABLE TO WALK. PT NOTES REVIEWED. STATES THAT SHE IS ABLE TO WALK A SHORT DISTANCE AND PIVOT TO CHAIR. NOTED THAT PATIENT HAS A WALKER AND W/C AT HOME. PATIENT'S CONCERNS HAVE BEEN ADDRESS AND PATIENT FIELD ADMINISTRATOR WAS NOTIFIED.
--- NOTE | 2021-04-15 15:23 | NUR ---
Transportation with [facility] [phone] cxl for 5pm pickup
[2021-04-15 15:43] VITALS: BP 141/58
--- NOTE | 2021-04-15 15:59 | NUR ---
Case and plan of care reviewed with physician each weekday during patient's length of stay. Plan is for .. DISCHARGED TO HOME WITH PT. DISCHARGED CANCELED PER DR. BROWN, DELAYED FOR TOMORROW
[2021-04-15 20:00] VITALS: BP 152/68
[2021-04-16 04:46] LABS: INR 3.4; PROTIME 33.6 Seconds (9.20-11.50)
--- NOTE | 2021-04-16 06:47 | NUR ---
ESPINOZA CATHETER REMOVED PER ORDER WITHOUT DIFFICULTY.
[2021-04-16 08:20] VITALS: BP 136/66
[2021-04-16 11:59] VITALS: BP 152/68
[2021-04-16 12:22] VITALS: BP 152/68
--- NOTE | 2021-04-16 12:49 | NUR ---
[facility] SCHEDULED TO ARRIVE [phone] TO COMPLETE PATIENT'S DISCHARGE #[phone] PATIENT NOTIFIED OF TIMES
--- NOTE | 2021-04-16 16:03 | NUR ---
Case and plan of care reviewed with physician each weekday during patient's length of stay. Plan is for .. Discharge today TRANSPORTATION ARRANGED AND HH NOTIFIED [facility].
[2021-04-16 16:29] VITALS: BP 152/68
--- NOTE | 2021-04-16 17:25 | NUR ---
PATIENT DISCHARGED TO HOME WITH HOME HEALTH. DISCHARGE PAPERS REVIEWED AND SIGNED. PRESCRIPTIONS TRANSMITTED TO PHARMACY. PATIENT ASSISTED WITH GETTING DRESSED. WOUND CARE COMPLETED AND PICTURES TAKEN. PATIENT ASSISTED TO WHEELCHAIR. PATIENT LEFT BY [facility] ROSA WRIGHT AT THIS TIME.
== END 2021-04-16 17:25 | disposition home health service (06) | DRG 292 ==
LOC: M.ERS 14:09 → M.TBA-ER 15:48 → M.3W 15:48
PROVIDERS: Family Medicine; Internal Medicine; ADMIT Internal Medicine; ATTEND Internal Medicine
PROC: 0HBRXZZ Excision of Toe Nail, External Approach (ICD-10-PCS; principal; 2021-04-12)
DX: I50.33 Acute on chronic diastolic (congestive) heart failure (principal); L97.929 Non-pressure chronic ulcer of unspecified part of left lower leg with unspecified severity; Z68.44 Body mass index [BMI] 60.0-69.9, adult; E66.01 Morbid (severe) obesity due to excess calories; Z20.822 Contact with and (suspected) exposure to COVID-19; M19.90 Unspecified osteoarthritis, unspecified site; B35.1 Tinea unguium; S81.802A Unspecified open wound, left lower leg, initial encounter; Z86.711 Personal history of pulmonary embolism; Z23 Encounter for immunization; X58.XXXA Exposure to other specified factors, initial encounter; Y93.89 Activity, other specified; Y92.89 Other specified places as the place of occurrence of the external cause; Y99.8 Other external cause status; K59.09 Other constipation

== ENCOUNTER 2021-07-19 17:35 | Inpatient (IN) | payer OTHER ==
[~2021-07-19] VITALS: Ht 157.5 cm; Wt 144.1 kg
[~2021-07-19 17:35] MED LIST changes: +NYAMYC15 GM TOP; +POTASSIUM99 M1 PO; +SENNA8.6 MG PO; +VITAMIN C250 MG PO; +WARFARIN SODIUM2 MG PO
[2021-07-19 17:48] VITALS: BP 153/55
[2021-07-19 18:33] LABS: HEMATOCRIT 39.4 % (37.0-47.0); HEMOGLOBIN 12.4 gm/dL (12.0-15.0); MCH 28.9 pg (26.0-34.0); MCHC 31.5 g/dL (28.0-37.0); MCV 91.6 fL (80.0-100.0); MPV 8.1 fl. (7.2-11.1); NUCLEATED RBCS 0 /100WBC; PLATELET COUNT* 272 thou/uL (150-400); RBC 4.31 mil/uL (4.20-5.00); RDW-CV 15.3 % (10.5-14.5); WBC 8.8 thou/uL (4.0-11.0)
[2021-07-19 18:43] LABS: CALCIUM 8.4 mg/dL (8.5-10.1); POTASSIUM 3.7 mmol/L (3.5-5.1)
[2021-07-19 18:46] LABS: APTT 31.9 Seconds (25.0-31.3); PROTIME 19.8 Seconds (9.20-11.50)
[2021-07-19 18:54] LABS: ALBUMIN 2.4 g/dL (3.4-5.0); TOTAL BILIRUBIN 0.8 mg/dL (<0.1-1.0); TOTAL PROTEIN 7.1 g/dL (6.4-8.2)
[2021-07-19 19:01] LABS: URINE BILIRUBIN NEGATIVE (Negative); URINE BLOOD NEGATIVE (Negative); URINE CLARITY CLEAR; URINE COLOR YELLOW; URINE GLUCOSE-RANDOM NEGATIVE (Negative); URINE KETONES TRACE (Negative); URINE LEUKOCYTES-REFLEX 1+ (Negative); URINE PROTEIN NEGATIVE (Negative); URINE SPECIFIC GRAVITY 1.015 (1.005-1.030)
[2021-07-19 19:02] LABS: URINE NITRITE-REFLEX POSITIVE (Negative)
[2021-07-19 19:08] LABS: CASTS None Seen /LPF (None Seen); CRYSTALS None Seen /LPF (None Seen); SQUAMOUS 4-10 Moderate /LPF (0-3); URINE RBC 0-2 Rare /HPF (0-2); URINE WBC-REFLEX 6-15 Few /HPF (0-5)
[2021-07-19 20:23] LABS: ABSOLUTE EOSINOPHILS 0.3 thou/uL (0.0-0.7); ABSOLUTE LYMPHOCYTES 0.8 thou/uL (0.8-5.3); ABSOLUTE MONOCYTES 0.2 thou/uL (0.0-1.2); ABSOLUTE NEUTROPHILS 7.6 thou/uL (1.6-8.1); PLATELET ESTIMATE ADEQUATE; PROMYELOCYTES 1 %
[2021-07-20] VITALS: BP 116/35
[2021-07-20 04:00] VITALS: BP 107/32
[2021-07-20 04:38] LABS: HEMOGLOBIN 11.8 gm/dL (12.0-15.0); MCV 90.8 fL (80.0-100.0); MPV 8.4 fl. (7.2-11.1); RBC 4.07 mil/uL (4.20-5.00); RDW-CV 15.4 % (10.5-14.5); WBC 10.5 thou/uL (4.0-11.0)
[2021-07-20 04:52] LABS: INR 1.8; PROTIME 17.7 Seconds (9.20-11.50)
[2021-07-20 05:10] LABS: ALBUMIN 2.2 g/dL (3.4-5.0); CALCIUM 8.2 mg/dL (8.5-10.1); MAGNESIUM 1.7 mg/dL (1.8-2.4); POTASSIUM 3.6 mmol/L (3.5-5.1); TOTAL BILIRUBIN 0.9 mg/dL (<0.1-1.0); TOTAL PROTEIN 6.7 g/dL (6.4-8.2)
[2021-07-20 08:53] VITALS: BP 107/44
[2021-07-20 11:38] VITALS: BP 114/51
--- NOTE | 2021-07-20 12:32 | 2DMMODE ---
[place] [address] 2 D/M-MODE ECHOCARDIOGRAM Name: CAMILLEMARISSACHIKI I Room: [address] IN [facility]#: [id number] Admission: 07/19/21 Attend Phys: Shilpi [place], Discharge: Date of : 41 Date of Service: 07/20/21 1232 Report #: [id number] THIS REPORT FOR: cc: Pedrito Cabrera MD, Meng MD Liston, Michael J. MD [facility] ~ APPROVED REPORT Study performed: 07/20/2021 11:03:49 EXAM: Comprehensive 2D, Doppler, and color-flow Echocardiogram Patient Location: In-Patient Room #: er Status: routine BSA: 2.33 HR: 66 bpm BP: 107/44 mmHg Rhythm: NSR Other Information Study Quality: Adequate Indications Pre-Op elevated bnp 2D Dimensions IVSd: 11.10 (7-11mm) LVOT Diam: 19.22 (18-24mm) LVDd: 45.92 mm PWd: 10.84 (7-11mm) Ascending Ao: 28.20 (22-36mm) LVDs: 25.30 (25-40mm) Aortic Root: 28.08 mm Volumes Left Atrial Volume (Systole) LA ESV Index: 32.40 mL/m2 Aortic Valve AoV Peak Artemio.: 1.91 m/s AO Peak Gr.: 14.63 mmHg LVOT Max P.89 mmHg AO Mean Gr.: 7.13 mmHg LVOT Mean P.99 mmHg LVOT Max V: 1.31 m/s AO V2 VTI: 32.27 cm LVOT Mean V: 0.77 m/s YULIYA (VTI): 2.42 cm2 LVOT V1 VTI: 26.89 [place] [address] 2 D/M-MODE ECHOCARDIOGRAM Name: CHIKI TREVINO I Room: [address] IN [facility]#: [id number] Admission: 07/19/21 Attend Phys: Shilpi Dover, Discharge: Date of : 41 Date of Service: 07/20/21 1232 Report #: [id number] Mitral Valve E/A Ratio: 0.89 MV Decel. Time: 246.56 ms MV E Max Artemio.: 1.03 m/s MV PHT: 71.50 ms MVA (PHT): 3.08 cm2 TDI E/Lateral E': 10.30 E/Medial E': 8.58 Medial E' Artemio.: 0.12 m/s Lateral E' Atremio.: 0.10 m/s Pulmonary Valve PV Peak Artemio.: 1.36 m/s PV Peak Gr.: 7.45 mmHg Tricuspid Valve RAP Estimate: 5.00 mmHg TR Peak Gr.: 37.35 mmHg RVSP: 42.00 mmHg PA Pressure: 42.00 mmHg Left Ventricle The left ventricle is normal size. There is normal LV segmental wall motion. There is normal left ventricular wall thickness. Left ventricular systolic function is normal. LVEF is 65-70%. Grade I - abnormal relaxation pattern. Right Ventricle The right ventricle is normal size. The right ventricular systolic function is normal. Atria Left atrium is mildly dilated. The right atrium size is normal. Aortic Valve Mild aortic valve sclerosis. No aortic regurgitation is present. There is no aortic valvular stenosis. Mitral Valve The mitral valve is normal in structure. There is no mitral valve regurgitation noted. No evidence of mitral valve stenosis. Tricuspid Valve The tricuspid valve is normal in structure. Trace tricuspid regurgitation. Moderate [place] [address] 2 D/M-MODE ECHOCARDIOGRAM Name: CHIKI TREVINO I Room: [address] IN [facility]#: [id number] Admission: 07/19/21 Attend Phys: Shilpi [place], Discharge: Date of : 41 Date of Service: 07/20/21 1232 Report #: [id number] Pulmonic Valve The pulmonary valve is normal in structure. There is no pulmonic valvular regurgitation. Great Vessels The aortic root is normal in size. IVC is normal in size and collapses >50% with inspiration. Pericardium There is no pericardial effusion. <Conclusion> The left ventricle is normal size. There is normal left ventricular wall thickness. Left ventricular systolic function is normal. LVEF is 65-70%. Grade I - abnormal relaxation pattern. Left atrium is mildly dilated. Mild aortic valve sclerosis. There is no aortic valvular stenosis. Trace tricuspid regurgitation. Moderate pulmonary hypertension. IVC is normal in size and collapses >50% with inspiration. <ELECTRONICALLY SIGNED> By: Celio Duran MD, FACC 07/20/21 1232 1232 1232 Celio Duran MD, FACC /INF
--- NOTE | 2021-07-20 13:10 | EKG ---
[place] [address] ELECTROCARDIOGRAM REPORT Name: CHIKI TREVINO I Room: [place] [address] ADM IN [facility]#: [id number] Admission: 07/19/21 Attend Phys: Shilpi [place], Discharge: Date of : 41 Date of Service: 07/19/211919 Report #: [id number] THIS REPORT FOR: //name// [facility] ED Test Date: 2021-07-19 Test Time: 19:20:40 Pat Name: CHIKI TREVINO Department: Room: [facility] Gender: F [place]: [place] : 1945 Requested By: Baudilio Mahajan Order Number: [id number] MD: Celio Duran Measurements Intervals [place] Rate: 67 P: 102 MN: 205 QRS: 93 QRSD: 100 T: 53 QT: 406 QTc: 429 Interpretive Statements Sinus rhythm Anteroseptal infarct, age indeterminate, possible Compared to ECG 04/10/2021 14:06:16 Myocardial infarct finding still present Electronically Signed On 07-20-2021 13:10:03 CONCESSIONS MANAGER by Celio Duarn [email or web address] <ELECTRONICALLY SIGNED> By: Celio Duran MD, FACC 07/20/21 1310 19 19 Celio Duran MD, FACC /EPI
[2021-07-20 21:24] VITALS: BP 147/57
[2021-07-20 23:45] VITALS: BP 126/54
[2021-07-21 04:00] VITALS: BP 123/43
[2021-07-21 05:29] LABS: ABSOLUTE BASOPHILS 0.1 thou/uL (0.0-0.2); ABSOLUTE LYMPHOCYTES 0.5 thou/uL (0.8-5.3); ABSOLUTE MONOCYTES 1.2 thou/uL (0.0-1.2); ABSOLUTE NEUTROPHILS 12.4 thou/uL (1.6-8.1); BASOPHILS 0.4 %; HEMATOCRIT 35.6 % (37.0-47.0); HEMOGLOBIN 11.4 gm/dL (12.0-15.0); LYMPHOCYTES 3.5 %; MCH 29.2 pg (26.0-34.0); MCHC 31.9 g/dL (28.0-37.0); MCV 91.4 fL (80.0-100.0); MONOCYTES 8.4 %; MPV 8.3 fl. (7.2-11.1); NUCLEATED RBCS 0 /100WBC; PLATELET COUNT* 266 thou/uL (150-400); POLYS 87.7 %; RDW-CV 15.5 % (10.5-14.5); WBC 14.1 thou/uL (4.0-11.0)
[2021-07-21 05:54] LABS: ALBUMIN 2.1 g/dL (3.4-5.0); CALCIUM 8.4 mg/dL (8.5-10.1); TOTAL PROTEIN 6.8 g/dL (6.4-8.2)
[2021-07-21 07:21] LABS: INR 1.3; PROTIME 12.8 Seconds (9.20-11.50)
[2021-07-21 08:00] VITALS: BP 132/46
[2021-07-21 11:37] VITALS: BP 123/49
[2021-07-21 17:07] VITALS: BP 129/45
[2021-07-21 21:09] VITALS: BP 127/49
[2021-07-22] VITALS: BP 133/44
[2021-07-22 04:00] VITALS: BP 126/57
[2021-07-22 04:36] LABS: ABSOLUTE EOSINOPHILS 0.4 thou/uL (0.0-0.7); ABSOLUTE LYMPHOCYTES 0.9 thou/uL (0.8-5.3); ABSOLUTE MONOCYTES 0.9 thou/uL (0.0-1.2); ABSOLUTE NEUTROPHILS 6.8 thou/uL (1.6-8.1); BASOPHILS 0.5 %; EOSINOPHILS 4.6 %; HEMATOCRIT 30.2 % (37.0-47.0); LYMPHOCYTES 10.3 %; MCHC 33.1 g/dL (28.0-37.0); MCV 90.6 fL (80.0-100.0); MONOCYTES 9.6 %; MPV 8.2 fl. (7.2-11.1); NUCLEATED RBCS 0 /100WBC; PLATELET COUNT* 249 thou/uL (150-400); RBC 3.34 mil/uL (4.20-5.00); RDW-CV 15.3 % (10.5-14.5); WBC 9.1 thou/uL (4.0-11.0)
[2021-07-22 04:49] LABS: ALBUMIN 1.8 g/dL (3.4-5.0); CALCIUM 8.1 mg/dL (8.5-10.1); CREATININE 0.8 mg/dL (0.6-1.3); POTASSIUM 3.5 mmol/L (3.5-5.1); TOTAL BILIRUBIN 0.8 mg/dL (<0.1-1.0)
[2021-07-22 04:51] LABS: INR 1.1; PROTIME 11.4 Seconds (9.20-11.50)
[2021-07-22 04:58] LABS: PREALBUMIN 10.8 mg/dL (18.0-35.7)
[2021-07-22 08:00] VITALS: BP 120/43
[2021-07-22 14:06] VITALS: BP 116/47
[2021-07-22 17:14] VITALS: BP 118/67
[2021-07-22 20:34] VITALS: BP 119/57
[2021-07-23] VITALS: BP 124/67
[2021-07-23 04:00] VITALS: BP 120/42
[2021-07-23 08:00] VITALS: BP 114/40
[2021-07-23 08:19] LABS: HEMATOCRIT 30.8 % (37.0-47.0); HEMOGLOBIN 10.1 gm/dL (12.0-15.0); MCHC 32.8 g/dL (28.0-37.0); MCV 91.6 fL (80.0-100.0); NUCLEATED RBCS 0 /100WBC; PLATELET COUNT* 281 thou/uL (150-400); RBC 3.36 mil/uL (4.20-5.00); RDW-CV 15.2 % (10.5-14.5); WBC 8.1 thou/uL (4.0-11.0)
[2021-07-23 08:27] LABS: INR 1.1; PROTIME 11.3 Seconds (9.20-11.50)
[2021-07-23] MEDS ORDERED: NORCO5 PO (08:35)
[2021-07-23] MEDS ORDERED: CEFUROXIME500 MG PO (08:37)
[2021-07-23] MEDS ORDERED: ENOXAPARIN40 MG/0.4 SUBQ (08:42)
[2021-07-23 08:54] LABS: CALCIUM 8.5 mg/dL (8.5-10.1); CREATININE 0.8 mg/dL (0.6-1.3); POTASSIUM 3.8 mmol/L (3.5-5.1)
[2021-07-23 09:07] LABS: ABSOLUTE BASOPHILS 0.1 thou/uL (0.0-0.2); ABSOLUTE EOSINOPHILS 0.4 thou/uL (0.0-0.7); ABSOLUTE LYMPHOCYTES 1.5 thou/uL (0.8-5.3); ABSOLUTE MONOCYTES 0.7 thou/uL (0.0-1.2); ABSOLUTE NEUTROPHILS 5.4 thou/uL (1.6-8.1); ATYPICAL LYMPHS 1 %; HYPOCHROMASIA 1+; PLATELET ESTIMATE ADEQUATE
[2021-07-23 11:16] VITALS: BP 128/41
--- NOTE | 2021-07-30 15:38 | OP ---
[facility] [address] [place] [address] OPERATIVE REPORT Name: CHIKI KERR Peterson Room: [address]#: [id number] Admission: 07/19/21 Attend Phys: Shilpi [place] MD Discharge: 07/23/21 Date of : 41 Report #: [id number] THIS REPORT FOR: cc: Pedrito Cabrera MD, Meng MD Black, Molly D MD ~ DATE OF SURGERY: 07/20/2021 PREOPERATIVE DIAGNOSES: 1. Morbid obesity. 2. Closed distal third femoral shaft fracture, right. 3. Likely fungal skin infection in the groin and abdominal folds. 4. Complex daily skin dermatitis/lichenification on both lower extremities. 5. Other medical comorbidities. 6. Osteoporosis. POSTOPERATIVE DIAGNOSES: 1. Morbid obesity. 2. Closed distal third femoral shaft fracture, right. 3. Likely fungal skin infection in the groin and abdominal folds. 4. Complex daily skin dermatitis/lichenification on both lower extremities. 5. Other medical comorbidities. 6. Osteoporosis. PROCEDURE: Retrograde femoral nail, right femur. SURGEON: Marcela Macdonald MD COSURGEON: Hernan Marmolejo DO STAGE BUILDER: Patti Jaimes, medical student. ANESTHESIA: General. COMPLICATIONS: None. ESTIMATED BLOOD LOSS: 200 mL IMPLANTS USED: Tyrone retrograde supracondylar nail, 12 x 240 with 4 distal interlocking screws and 2 proximal interlocking screws. INDICATIONS FOR PROCEDURE: The patient is an obese 76-year-old female who minimally ambulates. She had a ground level fall in the days preceding her admission from the ER on 07/19. She stayed at home for a day or two according to her caregiver and just thought she had a bruise. Her symptoms did not improve, so she sought medical treatment yesterday. In the [place], [place] [address] OPERATIVE REPORT Name: CHIKI KERR I Room: [address]#: [id number] Admission: 07/19/21 Attend Phys: Shilpi Dover MD Discharge: 07/23/21 Date of : 41 Report #: [id number] aforementioned diagnoses were made. The patient was given risks, benefits, complications and alternatives including how this would affect her future function and she wanted to proceed with the procedure on an urgent basis. DESCRIPTION OF PROCEDURE: Once the correct operative site was identified and informed consent was obtained, the patient was taken back to the operating suite in supine position. General anesthesia was administered and a timeout was done. The patient was identified as Chiki Kerr and the right femur was identified as the correct operative site. She was given preoperative antibiotic prophylaxis, which I believe was 3 grams of Ancef, dosed for her weight. Please check the operating room record for the exact amount and medication. We then proceeded to spend about 15-20 minutes doing a sterile prep of the right lower extremity. This was after she went to sleep. We also placed 2 safety belts over her chest and taped back her abdomen to keep it out of the way of the sterile field due to its large size. She had these dime-sized scale from about the proximal one-third of her leg and distal to the ankle level. We scrubbed them down mostly because they were loose and I did not want them to impact our ability to get a thorough prep. They did fall off with some scrubbing, but the skin underneath was raw and had some light bleeding once they were removed. The right lower extremity was then prepped and draped in a sterile fashion after a pre-prep was done. A 1-inch incision was made just medial to the patellar tendon, through which the starting guidewire was inserted. AP and lateral images were used to help guide the direction and position of the guidewire. While I advanced the guidewire under fluoroscopic guidance, Dr. Marmolejo reduced the fracture manually. The opening reamer was applied over the guidewire and then both were removed. The long guidewire was taken up to the level of the lesser trochanter. We specifically chose a 240 mm nail, which was much shorter than what we would normally do because of her skin conditions. I did not want to risk a deep fungal infection with the skin contamination. She has raw, malodorous skin between her anterior proximal thigh and her pannus, right where the proximal interlocking screw would have been. Thus, the shorter nail. The femur was reamed sequentially from a 9 to a 13.5 in preparations for the 12 mm nail. The outrigger device was used along with four 1-cm stab incisions to lock the nail distally x 4. Using perfect circles and a 2-inch incision proximally, the nail was locked x 2 from anterior to posterior. The entire case was guided with fluoroscopy. Once final fixation was in place, final AP and lateral fluoroscopic images were taken and saved into the PACS. The wounds were thoroughly irrigated and closed in a layered fashion with 0 Vicryl in the deep soft tissue, 3-0 PDS to reapproximate the skin, which was closed finally with interrupted 2-0 nylon. Sterile dressings were applied. The patient tolerated the procedure well. She was taken in stable condition to the Postoperative Care Unit under care of Anesthesia. [address] [place] [address] OPERATIVE REPORT Name: CHIKI KERR Peterson Room: [address] IN ..#: [id number] Admission: 07/19/21 Attend Phys: Shilpi Dover MD Discharge: 07/23/21 Date of : 41 Report #: [id number] POSTOPERATIVE PLAN: Nonweightbearing to the right lower extremity due to her size for possibly 6-8 weeks depending on what her followup x-rays look like. She will have 24 hours of prophylactic antibiotics. She will need DVT prophylaxis, which will be managed by her primary admitting team. Follow up as an outpatient in 2 weeks. We will consult the wound care team to address her skin issues and the possible fungal infection in her groin area. Reportedly, she also has decubitus ulcers that need to be addressed. <ELECTRONICALLY SIGNED> By: Marcela Macdonald MD 07/30/21 1538 1601 1834Marcela Macdonald MD /nt
== END 2021-07-23 16:40 | DRG 481 ==
LOC: M.ERS 17:35 → M.TBA-ER 20:08 → M.2W 20:08 → M.TBA-CV 07-20 16:29 → M.TBA 07-20 16:34 → M.2W 07-20 18:40
PROVIDERS: Family Medicine; Internal Medicine; ADMIT Internal Medicine; ATTEND Internal Medicine
PROC: 0QSB36Z Reposition Right Lower Femur with Intramedullary Internal Fixation Device, Percutaneous Approach (ICD-10-PCS; principal; 2021-07-20)
DX: S72.401A Unspecified fracture of lower end of right femur, initial encounter for closed fracture (principal); Z68.43 Body mass index [BMI] 50.0-59.9, adult; N30.01 Acute cystitis with hematuria; E66.2 Morbid (severe) obesity with alveolar hypoventilation; D68.32 Hemorrhagic disorder due to extrinsic circulating anticoagulants; E88.09 Other disorders of plasma-protein metabolism, not elsewhere classified; M19.90 Unspecified osteoarthritis, unspecified site; I87.8 Other specified disorders of veins; L89.152 Pressure ulcer of sacral region, stage 2; Z20.822 Contact with and (suspected) exposure to COVID-19; B96.20 Unspecified Escherichia coli [E. coli] as the cause of diseases classified elsewhere; W17.89XA Other fall from one level to another, initial encounter; K21.9 Gastro-esophageal reflux disease without esophagitis; Z79.899 Other long term (current) drug therapy; Y93.89 Activity, other specified; Y92.89 Other specified places as the place of occurrence of the external cause; Y99.8 Other external cause status; Z86.718 Personal history of other venous thrombosis and embolism; Z79.01 Long term (current) use of anticoagulants; Z86.711 Personal history of pulmonary embolism; Z99.81 Dependence on supplemental oxygen